=== PATIENT | female | born 1985 | race Caucasian/White ===

== ENCOUNTER 2017-07-05 08:55 | Emergency (ER) | payer OTHER ==
[2017-07-05 09:02] VITALS: BP 99/76; PULSE 81; RESP 18; TEMP 98.5
--- NOTE | 2017-07-05 09:32 | XR ---
EXAMINATION TYPE: XR foot complete LT DATE OF EXAM: 07/05/2017 CLINICAL HISTORY: Pain in left foot for a few days. TECHNIQUE: Frontal, lateral, and oblique images of the left foot are obtained. COMPARISON: None FINDINGS: There is no acute fracture/dislocation evident in the left foot. There is retained screw f ragment in the navicular bone medial aspect. Joint space loss medial aspect of talar navicular articu lation is present. There is unfused apophysis near cuboid bone. Some flexion in toes is present. No suspicious cortical destruction is present. The overlying soft tissue appears unremarkable. IMPRESSION: There is evidence of prior surgery at navicular bone noted. No acute fracture or disloca tion is seen.
--- NOTE | 2017-07-05 09:43 | ED ---
General Adult HPI - General Chief complaint: Extremity Injury, Lower Stated complaint: Foot Pain Time Seen by Provider: 07/05/17 09:10 Source: patient, RN notes reviewed Mode of arrival: wheelchair Limitations: no limitations - History of Present Illness Initial comments: 32-year-old female presents to the emergency Department chief complaint of left foot pain. Patient states that she's been having pain to the outside of her left foot for the past few weeks. Patient states that then today she noticed some increased pain and she points along the outside of her foot over her fifth metatarsal. Patient states it hurts if she bears weight on it. She's not been using anything for the pain. She states there is no trauma that she is aware of. She states that it just causes her some discomfort so she thought that she should be seen. Patient states she is not currently having any other symptoms at this time. Patient denies any recent fever, chills, shortness of breath, chest pain, back pain, abdominal pain, nausea vomiting, numbness or tingling, dysuria or hematuria, constipation or diarrhea, headaches or visual changes, or any other current symptoms. - Related Data Home Medications Medication Instructions Recorded Confirmed Ferrous Sulfate [Feosol] 325 mg PO DAILY 07/05/17 07/05/17 Norethindrone-E.estradiol-Iron 1 tab PO DAILY 07/05/17 07/05/17 [Junel Fe 24 Tablet] Allergies Allergy/AdvReac Type Severity Reaction Status Date / Time No Known Allergies Allergy Verified 07/05/17 09:17 Review of Systems ROS Statement: Those systems with pertinent positive or pertinent negative responses have been documented in the HPI. ROS Other: All systems not noted in ROS Statement are negative. Past Medical History Additional Past Medical History / Comment(s): scoliosis, migraines History of Any Multi-Drug Resistant Organisms: None Reported Past Surgical History: Appendectomy Additional Past Surgical History / Comment(s): bilateral feet Past Psychological History: No Psychological Hx Reported Smoking Status: Former smoker Past Alcohol Use History: Occasional Past Drug Use History: None Reported General Exam - General Exam Comments Initial Comments: General: The patient is awake and alert, in no distress, and does not appear acutely ill. Neck: The neck is supple, there is no tenderness. Cardiovascular: There is a regular rate and rhythm. No murmur, rub or gallop is appreciated. Respiratory: Lungs are clear to auscultation, respirations are non-labored, breath sounds are equal. No wheezes, stridor, rales, or rhonchi. Musculoskeletal: Sensation intact with 2+ pulses at the left lower extremity. Fund motion of left knee and left ankle. Patient does appear to have some tenderness patient along the fifth metatarsal. No swelling no deformity no bruising noted. Neurological: CN II-XII intact, There are no obvious motor or sensory deficits. Coordination appears grossly intact. Speech is normal. Skin: Skin is warm and dry and no rashes or lesions are noted. Psychiatric: Normal mood and affect. Limitations: no limitations Course Vital Signs 07/05/17 08:59 Temperature 98.5 F Pulse Rate 81 Respiratory 18 Rate Blood Pressure 99/76 O2 Sat by Pulse 97 Oximetry Medical Decision Making - Medical Decision Making 32-year-old female presents for left foot pain. This time x-rays reviewed and negative. At this time we discussed Motrin Tylenol for pain and ice. We did discuss follow-up with orthopedic discussed return parameters all for questions. She stated that she understood and she is in agreement with this plan. This time she will be discharged. - Radiology Data Radiology results: report reviewed, image reviewed Disposition Clinical Impression: Left foot pain Disposition: HOME SELF-CARE Condition: Stable Instructions: Foot Sprain (ED) Additional Instructions: Please use medication as discussed. Please follow up with family doctor if symptoms have not improved over the next two days. Please return to the emergency room if your symptoms increase or worsen or for any other concerns. Referrals: Booker Peoples MD [Primary Care Provider] - 1-2 days Jalen Torres MD [STAFF PHYSICIAN] - 1-2 days Time of Disposition: 09:43
== END 2017-07-05 09:51 | disposition home or self-care (01) ==
LOC: EC 08:55
DX: M79.672 Pain in left foot (principal); Z87.891 Personal history of nicotine dependence; Z79.899 Other long term (current) drug therapy; Z79.3 Long term (current) use of hormonal contraceptives
CPT/HCPCS: 99283

== ENCOUNTER 2018-03-29 09:06 | Emergency (ER) | payer OTHER ==
[2018-03-29 09:10] VITALS: BP 125/87; PULSE 83; RESP 18; TEMP 98.2
[2018-03-29] MEDS ORDERED: ORPHENADRINE 30 MG/ML 2 ML VIAL IM STA (09:22)
[2018-03-29] MEDS ORDERED: KETOROLAC 60 MG/2 ML VIAL IM STA (09:22)
--- NOTE | 2018-03-29 09:29 | ED ---
Extremity Problem HPI - General Chief complaint: Extremity Problem,Nontraumatic Stated complaint: rt shoulder pain Time Seen by Provider: 03/29/18 09:10 Source: patient, RN notes reviewed, old records reviewed Mode of arrival: ambulatory Limitations: no limitations - History of Present Illness Initial comments: This patient's a 33-year-old female presents emergency room with a chief complaint of neck pain and left shoulder pain and occasional numbness and tingling down the left arm. reports the symptoms have been going on for 3 days. Patient states that she does not room or any trauma or falls. She reports the pain is worse with movement. He is tender to touch over the scapula. Patient states that she feels that the occasional paresthesias. She denies any specific chest pain or shortness of breath. Patient states that she' s had no nausea or vomiting diaphoresis. - Related Data Home Medications Medication Instructions Recorded Confirmed Norethindrone-E.estradiol-Iron 1 tab PO DAILY 07/05/17 03/29/18 [Junel Fe 24 Tablet] Previous Rx's Medication Instructions Recorded Cyclobenzaprine [Flexeril] 10 mg PO TID #12 tab 03/29/18 Dexamethasone 0.75 mg PO DAILY #12 tab 03/29/18 Ibuprofen 600 mg PO TID #20 tablet 03/29/18 Allergies Allergy/AdvReac Type Severity Reaction Status Date / Time No Known Allergies Allergy Verified 03/29/18 09:17 Review of Systems ROS Statement: Those systems with pertinent positive or pertinent negative responses have been documented in the HPI. ROS Other: All systems not noted in ROS Statement are negative. Past Medical History Additional Past Medical History / Comment(s): scoliosis, migraines History of Any Multi-Drug Resistant Organisms: None Reported Past Surgical History: Appendectomy Additional Past Surgical History / Comment(s): bilateral feet Past Psychological History: No Psychological Hx Reported Smoking Status: Former smoker Past Alcohol Use History: Occasional Past Drug Use History: None Reported General Exam - General Exam Comments Initial Comments: This is an alert and oriented 33-year-old female. No significant distress. Limitations: no limitations General appearance: alert, in no apparent distress Head exam: Present: atraumatic, normocephalic, normal inspection Eye exam: Present: normal appearance, PERRL, EOMI. Absent: scleral icterus, conjunctival injection, periorbital swelling ENT exam: Present: normal exam, mucous membranes moist Neck exam: Present: normal inspection. Absent: tenderness, meningismus, lymphadenopathy Respiratory exam: Present: normal lung sounds bilaterally. Absent: respiratory distress, wheezes, rales, rhonchi, stridor Cardiovascular Exam: Present: regular rate, normal rhythm, normal heart sounds. Absent: systolic murmur, diastolic murmur, rubs, gallop, clicks GI/Abdominal exam: Present: soft, normal bowel sounds. Absent: distended, tenderness, guarding, rebound, rigid Extremities exam: Present: normal inspection, full ROM, normal capillary refill. Absent: tenderness, pedal edema, joint swelling, calf tenderness Back exam: Present: normal inspection, full ROM, vertebral tenderness (Patient has some minimal vertebral tenderness over the lower cervical spine.) Neurological exam: Present: alert, oriented X3, CN II-XII intact Psychiatric exam: Present: normal affect, normal mood Course Vital Signs 03/29/18 09:06 Temperature 98.2 F Pulse Rate 83 Respiratory 18 Rate Blood Pressure 125/87 O2 Sat by Pulse 99 Oximetry Medical Decision Making - Medical Decision Making 33-year-old female present to his pharmacy chief complaint of left shoulder and neck pain pain with range of motion. Patient reports occasional Full paresthesias on the left hand. She does have full range of motion noted. She was tender over the supraspinatus muscle. She also reports some pain with range motion of her head. Her vital signs are stable. I did perform an EKG which shows normal sinus rhythm no evidence of any acute abdomen or maladies. Patient was given IM Toradol and Norflex. This heavily patient's pain is more likely related to muscle spasm and as well as entrapped nerve of her cervical spine. Patient will be started on a steroid taper pack, muscle relaxers and anti-inflammatory medicine. All questions answered return parameters were discussed. 03/29/18 10:26 EKG performed at 1006 shows sinus rhythm with sinus arrhythmia. Normal EKG. Ventricular rate 67 beats were minute period. Most 136 most seconds. Care is duration 80 ms. QT QTc is 386/470 ms. - Radiology Data Radiology results: report reviewed No Acute fracture dislocation of the shoulder. Cervical spine shows no acute fractures or dislocation of the cervical spine. Disposition Clinical Impression: Shoulder pain, left, Arm paresthesia, left Disposition: HOME SELF-CARE Condition: Good Instructions: Paresthesia (ED), Rotator Cuff Tendinitis (ED) Additional Instructions: Patient advised to apply warm compresses over the area. Take the medication as prescribed. Follow-up with your primary care physician within the next 1-2 days. Return to the emergency department if any alarming signs or symptoms occur. Prescriptions: Cyclobenzaprine [Flexeril] 10 mg PO TID #12 tab Dexamethasone 0.75 mg PO DAILY #12 tab Ibuprofen 600 mg PO TID #20 tablet Is patient prescribed a controlled substance at d/c from ED?: No When asked, does pt state using other controlled substances?: No If prescribed controlled substance>3 days was MAPS reviewed?: No If opioid is for acute pain is fill amount 7 days or less?: No If Rx opioid, was Start Talking consent form obtained?: No Referrals: Marcos Davis MD [Primary Care Provider] - 1-2 days Time of Disposition: 10:27
--- NOTE | 2018-03-29 10:09 | XR ---
EXAMINATION TYPE: XR shoulder complete LT DATE OF EXAM: 03/29/2018 CLINICAL HISTORY: pain COMPARISON: NONE TECHNIQUE: Three views of the left shoulder are obtained. FINDINGS: There is no acute fracture/dislocation evident. The acromioclavicular and glenohumeral radha int spaces appear within normal limits. The visualized ribs are intact and unremarkable. IMPRESSION: 1. There is no acute fracture or dislocation. ICD 10 NO FRACTURE, INITIAL EVALUATION
--- NOTE | 2018-03-29 10:10 | XR ---
EXAMINATION TYPE: XR cervical spine limited DATE OF EXAM: 03/29/2018 CLINICAL HISTORY: pain TECHNIQUE: 3 views of the cervical spine are submitted. COMPARISON: None. FINDINGS: There is satisfactory in alignment without evidence of acute fracture or dislocation. The pre-vertebral soft tissue appears within normal limits.Disc spaces are well preserved. The C1-C2 art iculation is unremarkable on the open mouth view. IMPRESSION: No acute fracture or dislocation is seen in the cervical spine.
== END 2018-03-29 10:51 | disposition home or self-care (01) ==
LOC: EC 09:06
DX: M25.512 Pain in left shoulder (principal); R20.2 Paresthesia of skin; I49.8 Other specified cardiac arrhythmias; M54.2 Cervicalgia; R20.0 Anesthesia of skin; Z87.891 Personal history of nicotine dependence; Z79.3 Long term (current) use of hormonal contraceptives
CPT/HCPCS: 93005; 72040; 73030; 99284; 96372 ×2; J2360; J1885

== ENCOUNTER 2018-04-05 20:53 | Emergency (ER) | payer OTHER ==
[2018-04-05 21:23] VITALS: BP 113/70; PULSE 104; RESP 19; TEMP 98.3
[2018-04-06 06:03] LABS: ALT 30 U/L (9-52); AST 25 U/L (14-36); Alkaline Phosphatase 46 U/L (38-126); Anion Gap 8 mmol/L; Blood Urea Nitrogen 13 mg/dL (7-17); Calcium 9.3 mg/dL (8.4-10.2); Carbon Dioxide 24 mmol/L (22-30); Chloride 106 mmol/L (98-107); Glucose 100 mg/dL (74-99); Potassium 4.7 mmol/L (3.5-5.1); Sodium 138 mmol/L (137-145); Total Bilirubin 0.3 mg/dL (0.2-1.3); Total Protein 6.7 g/dL (6.3-8.2)
[2018-04-06 06:05] LABS: Amorphous Sediment,Urine Rare /hpf; Appearance,Urine Cloudy (Clear); Bilirubin,Urine Negative (Negative); Blood,Urine Negative (Negative); Color,Urine Yellow; Glucose,Urine (UA) Negative (Negative); Ketones,Urine Negative (Negative); Leukocyte Esterase,Urine Negative (Negative); Mucus,Urine Rare /hpf; Nitrite,Urine Negative (Negative); PH, Urine 7.5 (5.0-8.0); Protein,Urine Negative (Negative); Specific Gravity,Urine 1.018 (1.001-1.035); Squamous Epithelial Cell,Urine <1 /hpf (0-4); Urobilinogen,Urine <2.0 mg/dL (<2.0)
[2018-04-06 06:13] LABS: Basophils # (A) 0.1 k/uL (0-0.2); Basophils % (A) 1 %; Eosinophils # (A) 0.2 k/uL (0-0.7); Eosinophils % (A) 4 %; HCT 40.2 % (34.0-46.0); HGB 13.4 gm/dL (11.4-16.0); Lymphocytes # (A) 2.7 k/uL (1.0-4.8); Lymphocytes % (A) 47 %; MCH 30.6 pg (25.0-35.0); MCHC 33.4 g/dL (31.0-37.0); MCV 91.5 fL (80.0-100.0); Mean Platelet Volume 7.3; Monocytes # (A) 0.2 k/uL (0-1.0); Monocytes % (A) 4 %; Neutrophils # (A) 2.4 k/uL (1.3-7.7); Neutrophils % (A) 43 %; Platelet Count 209 k/uL (150-450); RDW 12.8 % (11.5-15.5); WBC 5.6 k/uL (3.8-10.6)
--- NOTE | 2018-04-06 11:39 | CT ---
EXAMINATION TYPE: CT chest wo con DATE OF EXAM: 04/06/2018 COMPARISON: NONE HISTORY: Left-sided chest pain into shoulder with crepitus CT DLP: 409.10 mGycm. Automated Exposure Control for Dose Reduction was Utilized. TECHNIQUE: CT scan of the thorax is performed without IV contrast. FINDINGS: LUNGS: There is left greater than right dependent atelectasis otherwise lungs are predominantly clear . There is right medial basilar linear scarring or atelectasis near diaphragm. No suspicious noncalci fied nodule or mass is present. There is a calcified 5 mm medial right middle lobe nodule axial image 47. There is no pleural effusion or pneumothorax seen. The tracheobronchial tree is patent. MEDIASTINUM: Lack of IV contrast is noted to limit evaluation for mediastinal and especially hilar ad enopathy. There are no definitive greater than 1 cm noncalcified hilar or mediastinal lymph nodes. T here are prominent calcified subcarinal lymph nodes. No cardiomegaly or pericardial effusion is seen. OTHER: Overlying metallic nipple ornaments are present. There is S-shaped scoliosis to visualized tho racolumbar spine. Occasional calcification in spleen is noted. Debris-filled stomach suggests recent meal ingestion. IMPRESSION: No suspicious subcutaneous air. No suspicious acute pulmonary process. 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
== END 2018-04-06 00:57 | disposition home or self-care (01) ==
LOC: EC 20:53
DX: M25.512 Pain in left shoulder (principal); Z79.52 Long term (current) use of systemic steroids; Z79.899 Other long term (current) drug therapy
CPT/HCPCS: 36415; 71250; 80053; 81001; 81025; 85025; 93005; 99284

== ENCOUNTER → 2019-05-24 | Outpatient (CLI) | payer OTHER ==
[2019-05-25 00:20] LABS: Hemoglobin A1C 5.2 % (4.0-6.0)
[2019-05-25 01:33] LABS: African American GFR (CKD) 113.1 (60.0-200.0); Albumin 4.6 g/dL (3.80-4.90); Albumin/Globulin Ratio 2.19 (1.60-3.17); Anion Gap 9.9 mmol/L (4.00-12.00); Calcium 9.1 mg/dL (8.7-10.3); Carbon Dioxide 24.1 mmol/L (21.6-31.8); Chol/HDL Ratio 2.93; Globulin 2.1 g/dL (1.6-3.3); Potassium 3.5 mmol/L (3.5-5.5); Total Bilirubin 0.5 mg/dL (0.3-1.2); Total Protein 6.7 g/dL (6.2-8.2)
[2019-05-25 01:57] LABS: T4, Free (Free Thyroxine) 0.9 ng/dL (0.80-1.80)
[2019-05-25 08:53] LABS: Basophils # (A) 0.1 k/uL (0-0.2); Basophils % (A) 2 %; Eosinophils # (A) 0.2 k/uL (0-0.7); Eosinophils % (A) 3 %; HCT 38.7 % (34.0-46.0); HGB 12.9 gm/dL (11.4-16.0); Lymphocytes # (A) 1.9 k/uL (1.0-4.8); Lymphocytes % (A) 31 %; MCH 29.6 pg (25.0-35.0); MCHC 33.2 g/dL (31.0-37.0); MCV 89.1 fL (80.0-100.0); Mean Platelet Volume 8.8; Monocytes # (A) 0.2 k/uL (0-1.0); Monocytes % (A) 4 %; Neutrophils # (A) 3.6 k/uL (1.3-7.7); Neutrophils % (A) 60 %; Platelet Count 216 k/uL (150-450); RBC 4.34 m/uL (3.80-5.40); WBC 6.1 k/uL (3.8-10.6)
[2019-05-25 13:32] LABS: APTT 40 Sec(s) (<43); Dilute Russell Viper Venom 40 Sec(s) (<44)
== END | disposition home or self-care (01) ==
LOC: LABWHC1 16:54
PROVIDERS: ATTEND Family Medicine
DX: Z00.00 Encounter for general adult medical examination without abnormal findings (principal); I10 Essential (primary) hypertension; Z79.899 Other long term (current) drug therapy
CPT/HCPCS: 36415; 80053; 80061; 83036; 84439; 84443; 85025; 85613; 85730; 86038

== ENCOUNTER → 2020-02-22 | Outpatient (CLI) | payer OTHER ==
[2020-02-22 09:18] LABS: HCT 40.9 % (34.0-46.0); HGB 13.2 gm/dL (11.4-16.0); MCH 29.7 pg (25.0-35.0); MCHC 32.3 g/dL (31.0-37.0); Mean Platelet Volume 8.1; Platelet Count 182 k/uL (150-450); RBC 4.45 m/uL (3.80-5.40); RDW 13.4 % (11.5-15.5); WBC 5.4 k/uL (3.8-10.6)
[2020-02-22 09:27] LABS: African American GFR (CKD) >90 (>60 ml/min/1.73 sqM); Glucose 105 mg/dL (74-99); Non-African American GFR(CKD) >90 (>60 ml/min/1.73 sqM)
--- NOTE | 2020-02-22 10:06 | US ---
EXAMINATION TYPE: US OB <= 14 wk twins DATE OF EXAM: 02/22/2020 COMPARISON: NONE CLINICAL HISTORY: 34-year-old female Z36 Confirm dates. EXAM PERFORMED: Transabdominal (TA) FINDINGS: EXAM MEASUREMENTS: GESTATIONAL AGE / DATING Physician Established: Not yet established Dates by LMP: (9 weeks/4 days) EDC: 09/22/2020 Dates by First Scan: No previous this is first scan Dates by Current Scan for Baby A: (9 weeks/0 days) EDC: 09/26/2020 Dates by Current Scan for Baby B: (9 weeks/0 days) EDC: 09/26/2020 MATERNAL ANATOMY Uterus: 15.2 x 5.5 x 8.0 cm Right Ovary: 2.2 x 1.2 x 1.5 cm Left Ovary: 3.2 x 2.2 x 2.1 cm Post CDS / Adnexa: wnl Presence of free fluid: No Presence of corpus luteal cyst: No Presence of subchorionic bleed: Yes, measuring 2.3 x 0.6 x 2.9 cm , inferiorly Presence of two separate gestational sacs: No. However, 2 separate expanding amnions are visualized. 2 yolk sacs are present. GESTATION / SURVEY TWIN A CRL: 2.3 (wks/days) Yolk Sac (normal less than 6mm): 3 mm Heart Rate: 176 bpm Rhythm: Normal IUP: Viable IUP TWIN B CRL: 2.28 (9wks/0 days) Yolk Sac (normal less than 6mm): 4 mm Heart Rate: 174 bpm Rhythm: Normal IUP: Viable IUP Date of LMP: 12/17/2019 Beta HcG (if available): Not available at this time Ambulance Mechanic notes: Viable twin . Subchorionic bleed measuring 2.3 x 0.6 x 2.9 cm IMPRESSION: 1. Live twin (monochorionic diamniotic) with estimated gestational age of 9 weeks 4 days by LMP and measured age for both twins at 9 weeks 0 days. 2. Small to moderate sized 2.9 cm inferior perigestational bleed. Borderline tachycardia at 176 BPM. Short interval follow-up as clinically indicated. 3. Complete survey recommended at 18-20 weeks.
[2020-02-22 18:48] LABS: HIV 2 AB Non-Reactive (Non-Reactive); HIV AB P24 Non-Reactive (Non-Reactive); HIV P24 AG Non-Reactive (Non-Reactive)
[2020-02-22 19:08] LABS: Hepatitis B Surface Antigen Non-Reactive (Non-Reactive)
== END | disposition home or self-care (01) ==
LOC: RADUSWWP 08:33
PROVIDERS: ATTEND Obstetrics & Gynecology
DX: O30.001 Twin pregnancy, unspecified number of placenta and unspecified number of amniotic sacs, first trimester (principal); Z3A.09 9 weeks gestation of pregnancy; O20.8 Other hemorrhage in early pregnancy
CPT/HCPCS: 76801; 76802; 82565; 82947; 85027; 86762; 86780; 86850; 86900; 86901; 87340; 87390

== ENCOUNTER 2020-05-13 14:48 | Outpatient (CLI) | payer OTHER ==
[2020-05-13 15:50] LABS: Appearance,Urine Cloudy (Clear); Bacteria,Urine Occasional /hpf; Bilirubin,Urine Negative (Negative); Blood,Urine Large (Negative); Color,Urine Light Yellow; Glucose,Urine (UA) Negative (Negative); Ketones,Urine Negative (Negative); Leukocyte Esterase,Urine Large (Negative); Mucus,Urine Rare /hpf; Nitrite,Urine Negative (Negative); Protein,Urine Trace (Negative); RBC,Urine 5 /hpf (0-5); Specific Gravity,Urine 1.002 (1.001-1.035); Squamous Epithelial Cell,Urine 2 /hpf (0-4); Urobilinogen,Urine <2.0 mg/dL (<2.0); WBC,Urine 128 /hpf (0-5)
[2020-05-13 16:35] VITALS: BP 125/67; PULSE 100; RESP 16; TEMP 97
--- NOTE | 2020-05-29 12:24 | P.MSEPDOC ---
Presenting Problems - Arrival Data Date of Arrival on Unit: 05/13/20 Time of Arrival on Unit: 14:48 Mode of Transport: Ambulatory - Complaint OB-Reason for Admission/Chief Complaint: Vaginal Bleeding Comment: pt presents to triage for vaginal bleedin for the last couple of hours, only on tp and some in toilet, none in her underware, no pad worn or needed Medical History - Information : 8 Para: 6 Term: 6 : 0 Abortions: Spontaneous or Elective: 1 Number of Living Children: 6 - Gestational Age Gestational Age by MADDY (wks/days): 21 Weeks and 1 Days - History Complications: Multiple Review of Systems - Review of Systems Constitutional: No problems Breast: No problems ENT: No problems Cardiovascular: No problems Respiratory: No problems Gastrointestinal: No problems Genitourinary: No problems Musculoskeletal: No problems Neurological: No problems Skin: No problems Vital Signs - Temperature Temperature: 97.0 F Temperature Source: Oral - Pulse Right Brachial Pulse Rate: 100 - Respirations Respiratory Rate: 16 Oxygen Delivery Method: Room Air O2 Sat by Pulse Oximetry: 100 - Blood Pressure Right Arm Blood Pressure: 125/67 Blood Pressure Mean: 86 Blood Pressure Source: Automatic Cuff Medical Screen Scoring (Pre) - Cervical Exam Dilation: Exam Deferred Effacement: Exam Deferred Membranes: Intact - Uterine Contractions Frequency: N/A Duration: N/A Intensity: N/A - Maternal Vital Signs Maternal Temperature: N/A Maternal Blood Pressure: N/A Signs of Preeclampsia: N/A Maternal Respirations: N/A - Maternal Trauma Maternal Trauma: N/A - Assessment - Baby A Heart Rate - NICHD Category: Category I (Normal) = 0 Position: N/A Station: N/A - Assessment - Baby B Heart Rate - NICHD Category: Category I (Normal) = 0 Position: N/A Station: N/A - Total Score - Baby A Total Score - Baby A: 0 - Total Score - Baby B Total Score - Baby B: 0 - Total Score - Baby C Total Score - Baby C: 0 - Level of Risk - Baby A Level of Risk - Baby A: Low (0-5) - Level of Risk - Baby B Level of Risk - Baby B: Low (0-5) - Level of Risk - Baby C Level of Risk - Baby C: Low (0-5) Physician Notification (Pre) - Physician Notified Physician Notified Date: 05/13/20 Physician Notified Time: 16:05 New Order Received: Yes - Notification Comment Comment: UA done, speculum exam done with no blood noted, urine culture ordered, pt discharged home with orders to push oral fluids and follow up at scheduled appt tomorrow with Dr. Collaoz Disposition - Disposition OB Disposition: Triage, Discharge to home, Written follow up instructions reviewed Discharge Date: 05/13/20 Discharge Time: 16:15 I agree with the RN Medical Screening Exam: Yes Risk & Benefit of care provided described in d/c instruction: Yes Diagnosis: ANTEPARTUM HEMORRHAGE W OTH COAG DEFECT, THIRD TRIMESTER
== END 2020-05-13 16:15 | disposition home or self-care (01) ==
LOC: FBPOP 14:48
PROVIDERS: ATTEND Obstetrics & Gynecology
DX: O46.093 Antepartum hemorrhage with other coagulation defect, third trimester (principal); Z3A.21 21 weeks gestation of pregnancy
CPT/HCPCS: 81001; 87086; 87077; 87186; G0463; 99213

== ENCOUNTER 2020-05-14 15:36 | Inpatient (IN) | payer OTHER ==
--- NOTE | 2020-05-14 17:31 | P.HPOB ---
History of Present Illness H&P Date: 05/14/20 Chief Complaint: Intrauterine 21 weeks: Patient is a 35 old with twin gestation at 21 weeks who is admitted for suspected pyelonephritis. She was seen in labor and delivery last night and a urinalysis was done showing 120 white blood cells and large blood and some white blood cells were in clumps and she was sent home with instructions as she had an appointment with me to follow up with depending on what her culture showed. There were some concern that because she had a liliana blood in her urine and it may actually be kidney stone and not an infection, but based on the rest of her symptomatology I suspect that this is pyelonephritis. Her vital signs are otherwise stable and she is afebrile. She questioned whether not she had a fever earlier today but in the office her temperature was 97.7. Her heart is regular her lungs are clear and her abdomen is soft. It is somewhat tender particularly along the right flank and side area and again costovertebral angle tenderness on the right side is soft positive negative on the left. We're making her for IV antibiotics for 24-48 hours depending on her symptomatology and will plan to continue close observational care as she does have a twin gestation. All questions are answered for her. She understands her condition and what the treatment plan is and she agrees to above Past Medical History Additional Past Medical History / Comment(s): scoliosis, migraines History of Any Multi-Drug Resistant Organisms: None Reported Past Surgical History: Appendectomy Additional Past Surgical History / Comment(s): bilateral feet Past Anesthesia/Blood Transfusion Reactions: No Reported Reaction Past Psychological History: No Psychological Hx Reported Smoking Status: Never smoker Past Alcohol Use History: Occasional Past Drug Use History: None Reported - Past Family History Mother Family Medical History: Coronary Artery Disease (CAD) Medications and Allergies Home Medications Medication Instructions Recorded Confirmed Type Aspirin [Children's Aspirin] 81 mg PO DAILY 05/13/20 05/13/20 History Folic Acid 1 tab PO DAILY 05/13/20 05/13/20 History Pnv No.95/Ferrous Fum/Folic AC 1 tab PO DAILY 05/13/20 05/13/20 History [ Multivitamin Tablet] Allergies Allergy/AdvReac Type Severity Reaction Status Date / Time Pertussis Vaccines Allergy Unknown Verified 05/13/20 15:24 Exam Osteopathic Statement: *. No significant issues noted on an osteopathic structural exam other than those noted in the History and Physical/Consult. Vital Signs Temp Pulse Resp BP 05/14/20 16:15 97.4 F L 84 14 116/64 Intake and Output 05/14/20 05/14/20 05/14/20 06:59 14:59 22:59 Other: Weight 78.018 kg - OBG Physical Exam Breast: both: normal (no masses) Abdomen: bowel sounds normal, no diffuse tenderness, no bruit present, no guarding noted, no hepatomegaly, no splenomegaly, no mass Vulva: both: normal Vagina: normal moisture, no discharge Cervix: no lesion, no discharge Uterus: normal size, normal contour Adnexa: both: normal Anus/Rectum: normal perianal skin, no rectal mass, no hemorrhoids, heme negative
[2020-05-14 18:31] LABS: Basophils % (A) 0 %; Eosinophils # (A) 0.1 k/uL (0-0.7); Eosinophils % (A) 1 %; HCT 34.3 % (34.0-46.0); HGB 11.4 gm/dL (11.4-16.0); Lymphocytes # (A) 1.3 k/uL (1.0-4.8); Lymphocytes % (A) 12 %; MCH 32.2 pg (25.0-35.0); MCHC 33.1 g/dL (31.0-37.0); MCV 97.1 fL (80.0-100.0); Mean Platelet Volume 8.9; Monocytes # (A) 0.4 k/uL (0-1.0); Monocytes % (A) 4 %; Neutrophils # (A) 8.9 k/uL (1.3-7.7); Neutrophils % (A) 82 %; Platelet Count 158 k/uL (150-450); RBC 3.53 m/uL (3.80-5.40); RDW 15.3 % (11.5-15.5); WBC 10.8 k/uL (3.8-10.6)
[2020-05-14 18:42] LABS: African American GFR (CKD) >90 (>60 ml/min/1.73 sqM); Anion Gap 3 mmol/L; Blood Urea Nitrogen 3 mg/dL (7-17); Carbon Dioxide 24 mmol/L (22-30); Chloride 108 mmol/L (98-107); Glucose 89 mg/dL (74-99); Non-African American GFR(CKD) >90 (>60 ml/min/1.73 sqM); Sodium 135 mmol/L (137-145)
[2020-05-14] MEDS: Acetaminophen-Codeine 300-30mg TAB PO PRN (19:17)
[2020-05-14] MEDS: LACTATED RINGERS 1,000 ML IV SCH (19:38)
[2020-05-14] MEDS: PIPERACILLIN-TAZOBACTAM 3.375 GM in SODIUM CHLORIDE 0.9% 100 ML IVPB SCH (19:39)
[2020-05-15] MEDS: Acetaminophen-Codeine 300-30mg TAB PO PRN (03:10)
[2020-05-15] MEDS: PIPERACILLIN-TAZOBACTAM 3.375 GM in SODIUM CHLORIDE 0.9% 100 ML IVPB SCH ×3 (03:12→18:49)
[2020-05-15] MEDS: LACTATED RINGERS 1,000 ML IV SCH ×3 (08:30→11:50)
--- NOTE | 2020-05-15 16:56 | P.PN ---
Progress Note - Text Progress Note Date: 05/15/20 Priscilla is seen and evaluated this afternoon. She overall is doing well. Her vital signs remained stable and she is been afebrile. White blood cell count was only 10.8 and I had planned to discharge her to home. However, late this morning early this afternoon she had an episode where her blood pressure fell and she had blood pressure in the 80s over's 50s she felt nauseous and clammy and it sounds like she potentially has a vagal reaction and a near syncopal episode. We'll consult her primary care provider for additional assistance in this diagnosis, she may ultimately need a cardiology consult if we're unable to determine why she is having these. She relates that she's had multiple episodes this her last 2 weeks initially had thought that it was due to the , however, based on the fact that she was laying resting in bed and she was not finer back it is unclear to me why she would have these symptoms in this situation. Will plan to continue current care continue IV antibiotics into tomorrow at which time I expect the sensitivity to be completed as well so we can make adjustments from there.
[2020-05-15 20:32] VITALS: BP 104/68; PULSE 80; RESP 18; TEMP 98.4
[2020-05-15] MEDS ORDERED: SODIUM CHLORIDE 0.9% 500 ML 500 ML IV ONE (23:43)
== END 2020-05-15 22:50 | disposition home or self-care (01) | DRG 833 ==
LOC: 4FBP 15:36 → OBSVTOIN 17:32 → 6PED 05-15 17:15
PROVIDERS: ADMIT Obstetrics & Gynecology; ATTEND Obstetrics & Gynecology
DX: O23.02 Infections of kidney in pregnancy, second trimester (principal); O26.892 Other specified pregnancy related conditions, second trimester; O99.89 Other specified diseases and conditions complicating pregnancy, childbirth and the puerperium; O99.352 Diseases of the nervous system complicating pregnancy, second trimester; R31.9 Hematuria, unspecified; O30.009 Twin pregnancy, unspecified number of placenta and unspecified number of amniotic sacs, unspecified trimester; M41.9 Scoliosis, unspecified; G43.909 Migraine, unspecified, not intractable, without status migrainosus; R55 Syncope and collapse; Z3A.21 21 weeks gestation of pregnancy; Z90.49 Acquired absence of other specified parts of digestive tract; Z79.82 Long term (current) use of aspirin; Z88.7 Allergy status to serum and vaccine; Z82.49 Family history of ischemic heart disease and other diseases of the circulatory system
CPT/HCPCS: 80048; 85025

== ENCOUNTER 2020-05-21 09:53 | Observation (INO) | payer OTHER ==
[2020-05-21] MEDS ORDERED: SODIUM CHLORIDE 0.9% 1,000 ML IV ONE (10:17)
--- NOTE | 2020-05-21 10:29 | ED ---
General Adult HPI - General Chief complaint: Dizziness Stated complaint: 22 wks preg dizziness Time Seen by Provider: 05/21/20 10:01 Source: EMS Mode of arrival: EMS Limitations: no limitations - History of Present Illness Initial comments: 35-year-old female patient presents to the emergency department today for evaluation after being sent from the continuous improvement black belt's office. Patient states that for the last month she has been having intermittent episodes where she becomes very hot, dizzy, has racing heart, and feels very weak. Patient states that she also become short of breath during these episodes. Patient states that last anywhere from 10-15 minutes and afterwards to feel exhausted and develops a headahce. Patient states that she has noticed that her blood pressure decreases during these episodes. Patient is 22 weeks . She is G8, P6. She was recently admitted to the hospital for pyelonephritis, she is currently taking Keflex for this. She denies any fevers or chills. Denies chest pain. She denies any nausea, vomiting, constipation, diarrhea. States she is able to eat and drink without difficulty. States during the episode she has checked her blood sugar and it has been normal. She does have history of complicated enmanuel cristian, but not for the last several years. She reports that her symptoms were much different. Patient denies any recent rash, cough, abdominal pain, back pain, numbness, tingling, hematuria, dysuria, urinary urgency, urinary frequency, headache, visual changes, or any other complaints. - Related Data Home Medications Medication Instructions Recorded Confirmed Aspirin [Children's Aspirin] 81 mg PO DAILY 05/13/20 05/13/20 Folic Acid 1 tab PO DAILY 05/13/20 05/13/20 Pnv No.95/Ferrous Fum/Folic AC 1 tab PO DAILY 05/13/20 05/13/20 [ Multivitamin Tablet] Previous Rx's Medication Instructions Recorded Cephalexin [Keflex] 500 mg PO Q6HR 7 Days #28 cap 05/15/20 Allergies Allergy/AdvReac Type Severity Reaction Status Date / Time Pertussis Vaccines Allergy Unknown Verified 05/21/20 09:56 Review of Systems ROS Statement: Those systems with pertinent positive or pertinent negative responses have been documented in the HPI. ROS Other: All systems not noted in ROS Statement are negative. Past Medical History Past Medical History: No Reported History Additional Past Medical History / Comment(s): scoliosis, migraines History of Any Multi-Drug Resistant Organisms: None Reported Past Surgical History: Appendectomy Additional Past Surgical History / Comment(s): bilateral feet Past Anesthesia/Blood Transfusion Reactions: No Reported Reaction Past Psychological History: No Psychological Hx Reported Smoking Status: Never smoker Past Alcohol Use History: Occasional Past Drug Use History: None Reported - Past Family History Mother Family Medical History: Coronary Artery Disease (CAD) General Exam Limitations: no limitations General appearance: alert, in no apparent distress, other (This is a well- developed, well-nourished adult female patient in no acute distress. Vital signs upon presentation are temperature 98.7F, pulse 75, respirations 22, blood pressure 116/82, pulse ox 100% on room air.) Eye exam: Present: normal appearance, PERRL, EOMI. Absent: scleral icterus, conjunctival injection, periorbital swelling Respiratory exam: Present: normal lung sounds bilaterally. Absent: respiratory distress, wheezes, rales, rhonchi, stridor Cardiovascular Exam: Present: regular rate, normal rhythm, normal heart sounds. Absent: systolic murmur, diastolic murmur, rubs, gallop, clicks GI/Abdominal exam: Present: soft, normal bowel sounds. Absent: distended, tenderness, guarding, rebound, rigid Neurological exam: Present: alert, oriented X3, CN II-XII intact Psychiatric exam: Present: normal affect, normal mood Skin exam: Present: warm, dry, intact, normal color. Absent: rash Course Vital Signs 05/21/20 05/21/20 09:56 11:26 Temperature 98.7 F Pulse Rate 75 97 Respiratory 22 17 Rate Blood Pressure 116/82 98/74 O2 Sat by Pulse 100 100 Oximetry EKG Findings - EKG Comments: EKG Findings:: EKG obtained at 1002 shows normal sinus rhythm with a ventricular rate of 82, MI interval 148, QRS duration 78, QT 360, QTC 420. No evidence of ST elevation or depression. Medical Decision Making - Medical Decision Making 35-year-old female patient presents to the emergency department today for evaluation of palpitations, dizziness, and weakness. Patient is 22 weeks . Was evaluated by Dr. Loi Morrow at cardiology today was sent over for further evaluation. Labs reviewed and are unremarkable. Echo results are pending. Urinalysis is pending. We will admit to the hospital for further evaluation by cardiology and her OFFICE MACHINE TECHNICIAN. Patient is agreeable to plan. - Lab Data Result diagrams: 05/21/20 10:24 05/21/20 10:24 Lab Results 05/21/20 05/21/20 05/21/20 Range/Units 10:24 10:24 10:24 WBC 7.3 (3.8-10.6) k/uL RBC 3.49 L (3.80-5.40) m/uL Hgb 11.2 L (11.4-16.0) gm/dL Hct 33.6 L (34.0-46.0) % MCV 96.1 (80.0-100.0) fL MCH 32.0 (25.0-35.0) pg MCHC 33.3 (31.0-37.0) g/dL RDW 14.8 (11.5-15.5) % Plt Count 185 (150-450) k/uL Neutrophils % 69 % Lymphocytes % 24 % Monocytes % 4 % Eosinophils % 2 % Basophils % 1 % Neutrophils # 5.0 (1.3-7.7) k/uL Lymphocytes # 1.8 (1.0-4.8) k/uL Monocytes # 0.3 (0-1.0) k/uL Eosinophils # 0.1 (0-0.7) k/uL Basophils # 0.0 (0-0.2) k/uL PT 9.5 (9.0-12.0) sec INR 0.9 (<1.2) APTT 20.7 L (22.0-30.0) sec Sodium 135 L (137-145) mmol/L Potassium 4.1 (3.5-5.1) mmol/L Chloride 108 H (98-107) mmol/L Carbon Dioxide 21 L (22-30) mmol/L Anion Gap 6 mmol/L BUN 8 (7-17) mg/dL Creatinine 0.45 L (0.52-1.04) mg/dL Est GFR (CKD-EPI)AfAm >90 (>60 ml/min/1.73 sqM) Est GFR (CKD-EPI)NonAf >90 (>60 ml/min/1.73 sqM) Glucose 95 (74-99) mg/dL Calcium 8.8 (8.4-10.2) mg/dL Magnesium 1.8 (1.6-2.3) mg/dL Total Bilirubin 0.4 (0.2-1.3) mg/dL AST 24 (14-36) U/L ALT 13 (4-34) U/L Alkaline Phosphatase 62 (38-126) U/L Troponin I (0.000-0.034) ng/mL Total Protein 5.8 L (6.3-8.2) g/dL Albumin 3.2 L (3.5-5.0) g/dL TSH 3.730 (0.465-4.680) mIU/L 05/21/20 Range/Units 10:24 WBC (3.8-10.6) k/uL RBC (3.80-5.40) m/uL Hgb (11.4-16.0) gm/dL Hct (34.0-46.0) % MCV (80.0-100.0) fL MCH (25.0-35.0) pg MCHC (31.0-37.0) g/dL RDW (11.5-15.5) % Plt Count (150-450) k/uL Neutrophils % % Lymphocytes % % Monocytes % % Eosinophils % % Basophils % % Neutrophils # (1.3-7.7) k/uL Lymphocytes # (1.0-4.8) k/uL Monocytes # (0-1.0) k/uL Eosinophils # (0-0.7) k/uL Basophils # (0-0.2) k/uL PT (9.0-12.0) sec INR (<1.2) APTT (22.0-30.0) sec Sodium (137-145) mmol/L Potassium (3.5-5.1) mmol/L Chloride (98-107) mmol/L Carbon Dioxide (22-30) mmol/L Anion Gap mmol/L BUN (7-17) mg/dL Creatinine (0.52-1.04) mg/dL Est GFR (CKD-EPI)AfAm (>60 ml/min/1.73 sqM) Est GFR (CKD-EPI)NonAf (>60 ml/min/1.73 sqM) Glucose (74-99) mg/dL Calcium (8.4-10.2) mg/dL Magnesium (1.6-2.3) mg/dL Total Bilirubin (0.2-1.3) mg/dL AST (14-36) U/L ALT (4-34) U/L Alkaline Phosphatase (38-126) U/L Troponin I <0.012 (0.000-0.034) ng/mL Total Protein (6.3-8.2) g/dL Albumin (3.5-5.0) g/dL TSH (0.465-4.680) mIU/L Disposition Clinical Impression: Palpitations, Dizziness Disposition: ADMITTED IP TO THIS [facility] Condition: Serious Referrals: Marcos Davis MD [Primary Care Provider] - 1-2 days Decision to Admit Reason: Admit from EC Decision Date: 05/21/20 Decision Time: 11:47
[2020-05-21 10:36] LABS: Basophils % (A) 1 %; Eosinophils # (A) 0.1 k/uL (0-0.7); Eosinophils % (A) 2 %; HCT 33.6 % (34.0-46.0); HGB 11.2 gm/dL (11.4-16.0); Lymphocytes # (A) 1.8 k/uL (1.0-4.8); Lymphocytes % (A) 24 %; MCHC 33.3 g/dL (31.0-37.0); MCV 96.1 fL (80.0-100.0); Mean Platelet Volume 9.1; Monocytes # (A) 0.3 k/uL (0-1.0); Monocytes % (A) 4 %; Neutrophils % (A) 69 %; Platelet Count 185 k/uL (150-450); RBC 3.49 m/uL (3.80-5.40); RDW 14.8 % (11.5-15.5); WBC 7.3 k/uL (3.8-10.6)
[2020-05-21 10:54] LABS: ALT 13 U/L (4-34); AST 24 U/L (14-36); African American GFR (CKD) >90 (>60 ml/min/1.73 sqM); Albumin 3.2 g/dL (3.5-5.0); Alkaline Phosphatase 62 U/L (38-126); Anion Gap 6 mmol/L; Blood Urea Nitrogen 8 mg/dL (7-17); Calcium 8.8 mg/dL (8.4-10.2); Carbon Dioxide 21 mmol/L (22-30); Chloride 108 mmol/L (98-107); Glucose 95 mg/dL (74-99); Magnesium 1.8 mg/dL (1.6-2.3); Non-African American GFR(CKD) >90 (>60 ml/min/1.73 sqM); Potassium 4.1 mmol/L (3.5-5.1); Sodium 135 mmol/L (137-145); Total Bilirubin 0.4 mg/dL (0.2-1.3); Total Protein 5.8 g/dL (6.3-8.2)
[2020-05-21 10:59] LABS: INR 0.9 (<1.2); Prothrombin Time 9.5 sec (9.0-12.0)
[2020-05-21 11:04] LABS: Partial Thromboplastin Time 20.7 sec (22.0-30.0)
[2020-05-21] MEDS ORDERED: NALOXONE 0.4 MG/ML 1 ML VIAL IV PRN (11:44)
[2020-05-21] MEDS ORDERED: ACETAMINOPHEN TAB 325 MG TAB PO PRN (11:44)
[2020-05-21] MEDS: SODIUM CHLORIDE 0.9% 1,000 ML IV SCH (12:11)
[2020-05-21 12:29] LABS: Amorphous Sediment,Urine Rare /hpf; Appearance,Urine Clear (Clear); Bacteria,Urine Rare /hpf; Bilirubin,Urine Negative (Negative); Blood,Urine Negative (Negative); Color,Urine Yellow; Glucose,Urine (UA) Negative (Negative); Ketones,Urine Negative (Negative); Leukocyte Esterase,Urine Small (Negative); Mucus,Urine Rare /hpf; Nitrite,Urine Negative (Negative); PH, Urine 7.5 (5.0-8.0); Protein,Urine Negative (Negative); RBC,Urine 1 /hpf (0-5); Specific Gravity,Urine 1.008 (1.001-1.035); Squamous Epithelial Cell,Urine 7 /hpf (0-4); Urobilinogen,Urine <2.0 mg/dL (<2.0); WBC,Urine 10 /hpf (0-5)
[2020-05-21 12:40] LABS: Amphetamine Screen,Urine Not Detected (NotDetected); Barbiturate Screen,Urine Not Detected (NotDetected); Benzodiazepines Screen,Urine Not Detected (NotDetected); Cocaine Screen,Urine Not Detected (NotDetected); Methadone Screen, Urine Not Detected (NotDetected); Opiate Screen,Urine Not Detected (NotDetected); Oxycodone Screen, Urine Not Detected (NotDetected); Phencyclidine Screen,Urine Not Detected (NotDetected); Tricyclic Antidepressant,Urine Not Detected (NotDetected); Urn Cannabinoid Scrn Not Detected (NotDetected)
--- NOTE | 2020-05-21 13:00 | ECHOF ---
Referral Reason:Palpitations; SOB; Dizziness MEASUREMENTS -------- HEIGHT: 165.1 cm WEIGHT: 77.1 kg BP: 116/82 RVIDd: 2.6 cm (< 3.3) IVSd: 1.0 cm (0.6 - 1.1) LVIDd: 4.6 cm (3.9 - 5.3) LVPWd: 1.0 cm (0.6 - 1.1) IVSs: 1.4 cm LVIDs: 3.1 cm LVPWs: 1.3 cm LA Diam: 3.2 cm (2.7 - 3.8) LAESV Index (A-L): 20.52 ml/m Ao Diam: 2.6 cm (2.0 - 3.7) AV Cusp: 2.1 cm (1.5 - 2.6) MV EXCURSION: 18.894 mm (> 18.000) MV EF SLOPE: 119 mm/s (70 - 150) EPSS: 0.5 cm MV E Andrea: 0.91 m/s MV DecT: 225 ms MV A Andrea: 0.80 m/s MV E/A Ratio: 1.13 RAP: 5.00 mmHg RVSP: 21.07 mmHg FINDINGS -------- Sinus rhythm. This was a technically good study. The left ventricular size is normal. Left ventricular wall thickness is normal. Overall left vent ricular systolic function is normal with, an EF between 60 - 65 %. The right ventricle is normal in size. Normal LA size by volume 22+/-6 ml/m2. The right atrium is normal in size. Interatrial and interventricular septum intact. The aortic valve is trileaflet and appears structurally normal. Mild mitral regurgitation is present. Mild tricuspid regurgitation present. Right ventricular systolic pressure is normal at < 35 mmHg. The aortic root size is normal. IVC Not well visulized. There is no pericardial effusion. CONCLUSIONS -------- 1. The left ventricular size is normal. 2. Left ventricular wall thickness is normal. 3. Overall left ventricular systolic function is normal with, an EF between 60 - 65 %. 4. Normal LA size by volume 22+/-6 ml/m2. 5. Mild mitral regurgitation is present. 6. Mild tricuspid regurgitation present. 7. There is no pericardial effusion. SUPERVISOR F[employer]IL[employer]ER PROCESSING: Shelbie Medrano RDCS
--- NOTE | 2020-05-21 14:09 | P.CRDCN ---
History of Present Illness History of present illness: HISTORY OF PRESENTING ILLNESS This is a pleasant 35-year-old female with no significant past medical history. She just established in the office with Dr. Morrow this morning. She is currently 22 weeks and for the previous 3 weeks she has been experiencing symptoms of dizziness, increased fatigue and shortness of breath. She states the first time it happened she was up walking around her house cleaning up for a democrat. It happened all of a sudden she felt quite dyspneic and then started feeling light headed light she would pass out, hot and flushed, nauseated and then noticed tingling in all four extremities. It happened again last week while she was here in the hospital being evaluated for pyelonephritis. Blood pressure was checked at that time and found to be low around 80 systolic. It did come back up to baseline of high 90's shortly thereafter and her symptoms did seem to improve with improvement of her blood pressure. Today while in the office seeing Dr. Morrow it happened again. She was sitting on the exam table and started feeling acutely warm and flushed. She then felt short of breath and light headed like she was going to pass out. She denies ever having had LOC associated with these symptoms. According to the office staff her heart rate was normal during this episode, no bradycardia appreciated. She is seen and examined resting comfortably in no acute distress. She denies chest pain, shortness of breath, dizziness or palpitations. Orthostatic vital signs are unremarkable. DIAGNOSTICS EKG reveals sinus mechanism with no acute ST or T-wave changes. Echocardiogram obtained reveals preserved LV systolic function with ejection fraction 60-65% and no valvular abnormalities noted. Laboratory reviewed, WBC 7.3, hemoglobin 11.2, platelets 185, sodium 135, potassium 4.1, creatinine 0.45, magnesium 1.8, cardiac enzymes negative 1 and TSH 3.73. Current daily medications include vitamins, folic acid, aspirin 81 mg daily and Keflex 500 mg 4 times a day. REVIEW OF SYSTEMS At the time of my exam: CONSTITUTIONAL: Denies fever or chills. CARDIOVASCULAR: Denies chest pain, shortness of breath, orthopnea, PND or palpitations. RESPIRATORY: Denies cough. GASTROINTESTINAL: Denies abdominal pain, diarrhea, constipation, nausea or vomit ing. MUSCULOSKELETAL: Denies myalgias. NEUROLOGIC: Denies numbness, tingling or weakness. ENDOCRINE: Denies fatigue, weight change, polydipsia or polyurina. GENITOURINARY: Denies burning, hematuria or urgency with micturation. HEMATOLOGIC: Denies history of anemia or bleeding. PHYSICAL EXAMINATION Blood pressure 109/76 heart rate 96 afebrile and maintaining oxygen saturation on room air. CONSTITUTIONAL: No apparent distress. HEENT: Head is normocephalic. Pupils are equal, round. Sclerae anicteric. Mucous membranes of the mouth are moist. No JVD. No carotid bruit. CHEST EXAMINATION: Lungs are clear to auscultation. No chest wall tenderness is noted on palpation or with deep breathing. HEART EXAMINATION: Regular rate and rhythm. S1, S2 heard. No murmurs, gallops or rub. ABDOMEN: Soft, nontender. Positive bowel sounds. EXTREMITIES: 2+ peripheral pulses, no lower extremity edema and no calf tenderness. NEUROLOGIC EXAMINATION: Patient is awake, alert and oriented x3. ASSESSMENT Dizziness and shortness of breath , 22 weeks with two fetuses Recent diagnosis of pyelonephritis maintained on PO antibiotics PLAN Continue to monitor her on telemetry. Clinically her symptoms sound vasovagal in nature. Possibly related to underlying infectious process. She also comments she may have been running a fever but has no actually checked her temperature. Agree with hydration overnight and ongoing monitoring. Thank you kindly for this consultation. Nurse Practitioner note has been reviewed, I agree with a documented findings and plan of care. Patient was seen and examined. Past Medical History Past Medical History: No Reported History Additional Past Medical History / Comment(s): scoliosis, migraines History of Any Multi-Drug Resistant Organisms: None Reported Past Surgical History: Appendectomy Additional Past Surgical History / Comment(s): bilateral feet Past Anesthesia/Blood Transfusion Reactions: No Reported Reaction Smoking Status: Former smoker - Past Family History Mother Family Medical History: Coronary Artery Disease (CAD) Medications and Allergies Home Medications Medication Instructions Recorded Confirmed Type Aspirin [Children's Aspirin] 81 mg PO DAILY 05/13/20 05/21/20 History Folic Acid 1 tab PO DAILY 05/13/20 05/21/20 History Pnv No.95/Ferrous Fum/Folic AC 1 tab PO DAILY 05/13/20 05/21/20 History [ Multivitamin Tablet] Cephalexin [Keflex] 500 mg PO Q6HR 7 Days #28 cap 05/15/20 05/21/20 Rx Allergies Allergy/AdvReac Type Severity Reaction Status Date / Time Pertussis Vaccines Allergy Unknown Verified 05/21/20 11:52 Physical Exam Vitals: Vital Signs Temp Pulse Pulse Pulse Pulse Resp BP 05/21/20 13:39 95 96 75 05/21/20 12:50 98.1 F 76 16 05/21/20 12:14 18 05/21/20 11:26 97 17 98/74 05/21/20 09:56 98.7 F 75 22 116/82 BP BP BP Pulse Ox 05/21/20 13:39 112/73 109/76 98/65 05/21/20 12:50 97/64 100 05/21/20 12:14 05/21/20 11:26 100 05/21/20 09:56 100 Intake and Output 05/20/20 05/21/20 05/21/20 22:59 06:59 14:59 Intake Total 50 Balance 50 Intake: Intake, IV Titration 50 Amount Sodium Chloride 0.9% 1, 50 000 ml @ 50 mls/hr IV . Q20H [facility] Rx#:[id number] Other: Weight 77.111 kg Results 05/21/20 10:24 05/21/20 10:24 Cardiac Enzymes 05/21/20 05/21/20 Range/Units 10:24 10:24 AST 24 (14-36) U/L Troponin I <0.012 (0.000-0.034) ng/mL Coagulation 05/21/20 Range/Units 10:24 PT 9.5 (9.0-12.0) sec APTT 20.7 L (22.0-30.0) sec CBC 05/21/20 Range/Units 10:24 WBC 7.3 (3.8-10.6) k/uL RBC 3.49 L (3.80-5.40) m/uL Hgb 11.2 L (11.4-16.0) gm/dL Hct 33.6 L (34.0-46.0) % Plt Count 185 (150-450) k/uL Comprehensive Metabolic Panel 05/21/20 Range/Units 10:24 Sodium 135 L (137-145) mmol/L Potassium 4.1 (3.5-5.1) mmol/L Chloride 108 H (98-107) mmol/L Carbon Dioxide 21 L (22-30) mmol/L BUN 8 (7-17) mg/dL Creatinine 0.45 L (0.52-1.04) mg/dL Glucose 95 (74-99) mg/dL Calcium 8.8 (8.4-10.2) mg/dL AST 24 (14-36) U/L ALT 13 (4-34) U/L Alkaline Phosphatase 62 (38-126) U/L Total Protein 5.8 L (6.3-8.2) g/dL Albumin 3.2 L (3.5-5.0) g/dL Current Medications Generic Name Dose Route Start Last Admin Trade Name Freq PRN Reason Stop Dose Admin Acetaminophen 650 mg 05/21/20 11:44 Tylenol Tab PO Q6HR PRN Mild Pain or Fever > 100.5 Aspirin 81 mg 05/22/20 09:00 Aspirin PO DAILY FARZANA Cephalexin 500 mg 05/21/20 18:00 Keflex PO 05/22/20 23:00 Q6HR FARZANA Folic Acid 1 mg 05/22/20 09:00 Folic Acid PO DAILY FARZANA Sodium Chloride 1,000 mls @ 50 mls/hr 05/21/20 11:45 05/21/20 12:11 Saline 0.9% IV 50 mls/hr .Q20H FARZANA Administration Multivi/Iron Carb/Fe Sulf/FA/Prenat 1 each 05/22/20 09:00 -U Capsule PO DAILY FARZANA Naloxone HCl 0.2 mg 05/21/20 11:44 Narcan IV Q2M PRN Opioid Reversal Intake and Output 05/20/20 05/21/20 05/21/20 22:59 06:59 14:59 Intake Total 50 Balance 50 Intake: Intake, IV Titration 50 Amount Sodium Chloride 0.9% 1, 50 000 ml @ 50 mls/hr IV . Q20H FAR[facility] Rx#:[id number] Other: Weight 77.111 kg Patient Weight 05/22/20 06:59 Weight 77.111 kg 05/21/20 10:24 05/21/20 10:24
--- NOTE | 2020-05-21 18:06 | P.OBCN ---
History of Present Illness Consult date: 05/21/20 Reason for consult: other () Chief complaint: Near-syncope and symptomatic hypotension History of present illness: This patient is a 35-year-old 8 para 6 female estimated date of confinement 09/22/2020 estimated gestational age 22-2/7 weeks with known twin gestation who is admitted to the hospital by cardiology for evaluation of near syncope and symptomatic hypotension. Patient's care is per Dr. Collazo. Her recent history is such that she was initially admitted about 1 week ago with suspected pyelonephritis. Patient at that time did have a urine culture positive for E. coli however did not have a fever nor did she have any significant white blood cell count elevation. Patient was given IV antibiotics and while she was in the hospital did have an episode of near syncope and hypot ension and at the time Dr. Collazo consulted her primary care physician and cardiology. Patient however was unable to find childcare and therefore left the hospital before this evaluation was done. Patient was sent home on oral Keflex at that time as well. Patient was seen in follow-up in the office yesterday by Dr. Collazo and still having persistent symptoms and therefore was scheduled to see cardiology which saw patient earlier this morning. She apparently had this similar episode in the office that were sent to the emergency department for evaluation and admission. Patient's otherwise has been uncomplicated. Cardiac evaluation here thus far has been unremarkable. Review of Systems Constitutional: Reports as per HPI Genitourinary: Reports Menstruation: Reports amenorrhea Past Medical History Additional Past Medical History / Comment(s): scoliosis, migraines History of Any Multi-Drug Resistant Organisms: None Reported Past Surgical History: Appendectomy, Orthopedic Surgery Additional Past Surgical History / Comment(s): bilateral feet Past Anesthesia/Blood Transfusion Reactions: No Reported Reaction Smoking Status: Former smoker Past Alcohol Use History: None Reported Past Drug Use History: None Reported - Past Family History Mother Family Medical History: Coronary Artery Disease (CAD) Medications and Allergies Home Medications Medication Instructions Recorded Confirmed Type Aspirin [Children's Aspirin] 81 mg PO DAILY 05/13/20 05/21/20 History Folic Acid 1 tab PO DAILY 05/13/20 05/21/20 History Pnv No.95/Ferrous Fum/Folic AC 1 tab PO DAILY 05/13/20 05/21/20 History [ Multivitamin Tablet] Cephalexin [Keflex] 500 mg PO Q6HR 7 Days #28 cap 05/15/20 05/21/20 Rx Allergies Allergy/AdvReac Type Severity Reaction Status Date / Time Pertussis Vaccines Allergy Unknown Verified 05/21/20 11:52 Exam Vital Signs Temp Pulse Pulse Pulse Pulse Resp BP 05/21/20 13:39 95 96 75 05/21/20 12:50 98.1 F 76 16 05/21/20 12:14 18 05/21/20 11:26 97 17 98/74 05/21/20 09:56 98.7 F 75 22 116/82 BP BP BP Pulse Ox 05/21/20 13:39 112/73 109/76 98/65 05/21/20 12:50 97/64 100 05/21/20 12:14 05/21/20 11:26 100 05/21/20 09:56 100 Intake and Output 05/21/20 05/21/20 05/21/20 06:59 14:59 22:59 Intake Total 50 Balance 50 Intake: Intake, IV Titration 50 Amount Sodium Chloride 0.9% 1, 50 000 ml @ 50 mls/hr IV . Q20H [facility] Rx#:[id number] Other: Weight 77.111 kg Results Result Diagrams: 05/21/20 10:24 05/21/20 10:24 Abnormal Lab Results - Last 24 Hours (Table) 05/21/20 05/21/20 05/21/20 Range/Units 10:23 10:24 10:24 RBC 3.49 L (3.80-5.40) m/uL Hgb 11.2 L (11.4-16.0) gm/dL Hct 33.6 L (34.0-46.0) % APTT 20.7 L (22.0-30.0) sec Sodium (137-145) mmol/L Chloride (98-107) mmol/L Carbon Dioxide (22-30) mmol/L Creatinine (0.52-1.04) mg/dL Total Protein (6.3-8.2) g/dL Albumin (3.5-5.0) g/dL Ur Leukocyte Esterase Small H (Negative) Urine WBC 10 H (0-5) /hpf Ur Squamous Epith Cells 7 H (0-4) /hpf Amorphous Sediment Rare H (None) /hpf Urine Bacteria Rare H (None) /hpf Urine Mucus Rare H (None) /hpf 05/21/20 Range/Units 10:24 RBC (3.80-5.40) m/uL Hgb (11.4-16.0) gm/dL Hct (34.0-46.0) % APTT (22.0-30.0) sec Sodium 135 L (137-145) mmol/L Chloride 108 H (98-107) mmol/L Carbon Dioxide 21 L (22-30) mmol/L Creatinine 0.45 L (0.52-1.04) mg/dL Total Protein 5.8 L (6.3-8.2) g/dL Albumin 3.2 L (3.5-5.0) g/dL Ur Leukocyte Esterase (Negative) Urine WBC (0-5) /hpf Ur Squamous Epith Cells (0-4) /hpf Amorphous Sediment (None) /hpf Urine Bacteria (None) /hpf Urine Mucus (None) /hpf Assessment and Plan Assessment: This is a 35-year-old 8 para 6 female 22-2/7 week intrauterine with known twin gestation. Patient is admitted for cardiac evaluation secondary to symptomatic hypotension and vasovagal symptoms. Given that her evaluation thus far has been negative, it appears that her symptoms most likely are secondary to normal physiologic changes that occur during . Fortunately although these symptoms make the patient uncomfortable, they are not necessarily harmful to her or the . I completely agree with a [facility] cardiac evaluation to rule out other other pathologic etiologies. Patient understands that if the evaluation is negative, her only recourse is to try to avoid those situations that exacerbate her symptoms and increase her fluid intake. Her urinary tract infection appears to have cleared however I did recommend that she continue her oral antibiotic until Tuesday. Patient will be seen in follow-up with Dr. Collazo tomorrow. Thank you very much for this consultation. (1) Twin gestation in second trimester Current Visit: Yes Status: Acute Code(s): O30.002 - TWIN PREG, UNSP NUM PLCNTA & AMNIO SACS, SECOND TRIMESTER SNOMED Code(s): 39230392 (2) Symptomatic hypotension Current Visit: Yes Status: Acute Code(s): I95.9 - HYPOTENSION, UNSPECIFIED SNOMED Code(s): 18756863
[2020-05-21] MEDS: CEPHALEXIN 500 MG CAP PO SCH ×2 (18:26→23:16)
--- NOTE | 2020-05-21 23:20 | HP ---
HISTORY AND PHYSICAL This patient is a 35-year-old white female who came in with some tachycardia from the cardiology office. She had an echo that was normal here in the hospital. She has symptoms of dizziness, increased fatigue and possible vasovagal syncope when she sits for a prolonged period of time. This mostly happens in a sitting position, but in different positions this occurs. She is with twins in the second trimester. She has been IV antibiotics. Now she is on oral Keflex. Fourteen-point review of systems negative except for mentioned in HPI. Blood pressure 109 over 70s. CARDIOVASCULAR: S1, S2. LUNGS: Transmitted upper airway sounds. GI: Soft. HEMATOLOGY: Negative Homans. PSYCH: Fair mood and affect. NEUROLOGIC: Alert and oriented x3. ASSESSMENT: 1. Dizziness, shortness of breath; possibly vasovagal syncope. 2. at 22 weeks with twins. 3. Recent pyelonephritis and urinary tract infection. Continue with Keflex. Rehydrate. Vasovagal syncope is most likely a symptom. Possibly discharge home in the morning. MMODL / IJN: [id number] /
[2020-05-22] MEDS: CEPHALEXIN 500 MG CAP PO SCH ×2 (06:44→12:27)
[2020-05-22 07:38] VITALS: BP 107/71; PULSE 90; RESP 16; TEMP 98
[2020-05-22] MEDS: SODIUM CHLORIDE 0.9% 1,000 ML IV SCH (08:49)
[2020-05-22] MEDS ORDERED: PRENATAL VIT-IRON-FOLIC ACID 1 EACH CAP PO SCH (09:00)
[2020-05-22] MEDS ORDERED: ASPIRIN 81 MG PO SCH (09:00)
[2020-05-22] MEDS ORDERED: FOLIC ACID 1 MG TAB PO SCH (09:00)
--- NOTE | 2020-05-22 09:17 | P.PN ---
Subjective HISTORY OF PRESENTING ILLNESS This is a pleasant 35-year-old female with no significant past medical history. She just established in the office with Dr. Morrow this morning. She is seen and examined resting comfortably in bed in no acute distress. She has had no further symptoms of dizziness since arriving at the hospital. Telemetry tracings have been unremarkable. She has no chest pain, palpitations or shortness of breath. Blood pressure 107/71 heart rate 90 afebrile maintaining oxygen saturation on room air. PHYSICAL EXAMINATION CONSTITUTIONAL: No apparent distress. HEENT: Head is normocephalic. Pupils are equal, round. Sclerae anicteric. Mucous membranes of the mouth are moist. No JVD. No carotid bruit. CHEST EXAMINATION: Lungs are clear to auscultation. No chest wall tenderness is noted on palpation or with deep breathing. HEART EXAMINATION: Regular rate and rhythm. S1, S2 heard. No murmurs, gallops or rub. EXTREMITIES: 2+ peripheral pulses, no lower extremity edema and no calf tenderness. ASSESSMENT Dizziness and shortness of breath , 22 weeks with two fetuses Recent diagnosis of pyelonephritis maintained on PO antibiotics PLAN Stable for discharge from a cardiac perspective. Recommend 14 day event monitor to be picked up from the office upon discharge. Follow-up with Dr. Morrow in 3 weeks. Symptoms likely related to vasovagal reaction secondary to pyelonephritis. Nurse Practitioner note has been reviewed, I agree with a documented findings and plan of care. Patient was seen and examined. Objective - Vital Signs Vital signs: Vital Signs Temp 98.0 F 05/22/20 07:36 Pulse 90 05/22/20 07:36 Resp 16 05/22/20 07:36 BP 107/71 05/22/20 07:36 Pulse Ox 98 05/22/20 07:36 Intake & Output 05/21/20 05/22/20 05/22/20 18:59 06:59 18:59 Intake Total 50 900 Balance 50 900 Weight 77.111 kg Intake: Intake, IV Titration 50 Amount Sodium Chloride 0.9% 1, 50 000 ml @ 50 mls/hr IV . Q20H FARZANA Rx#:[id number] Oral 900 Other: Voiding Method Toilet Toilet # Voids 2 - Labs CBC & Chem 7: 05/21/20 10:24 05/21/20 10:24 Labs: Abnormal Lab Results - Last 24 Hours (Table) 05/21/20 05/21/20 05/21/20 Range/Units 10:23 10:24 10:24 RBC 3.49 L (3.80-5.40) m/uL Hgb 11.2 L (11.4-16.0) gm/dL Hct 33.6 L (34.0-46.0) % APTT 20.7 L (22.0-30.0) sec Sodium (137-145) mmol/L Chloride (98-107) mmol/L Carbon Dioxide (22-30) mmol/L Creatinine (0.52-1.04) mg/dL Total Protein (6.3-8.2) g/dL Albumin (3.5-5.0) g/dL Ur Leukocyte Esterase Small H (Negative) Urine WBC 10 H (0-5) /hpf Ur Squamous Epith Cells 7 H (0-4) /hpf Amorphous Sediment Rare H (None) /hpf Urine Bacteria Rare H (None) /hpf Urine Mucus Rare H (None) /hpf 05/21/20 Range/Units 10:24 RBC (3.80-5.40) m/uL Hgb (11.4-16.0) gm/dL Hct (34.0-46.0) % APTT (22.0-30.0) sec Sodium 135 L (137-145) mmol/L Chloride 108 H (98-107) mmol/L Carbon Dioxide 21 L (22-30) mmol/L Creatinine 0.45 L (0.52-1.04) mg/dL Total Protein 5.8 L (6.3-8.2) g/dL Albumin 3.2 L (3.5-5.0) g/dL Ur Leukocyte Esterase (Negative) Urine WBC (0-5) /hpf Ur Squamous Epith Cells (0-4) /hpf Amorphous Sediment (None) /hpf Urine Bacteria (None) /hpf Urine Mucus (None) /hpf
== END 2020-05-22 15:43 | disposition home or self-care (01) ==
LOC: EC 09:53 → 3NCARDOBS 11:55
PROVIDERS: ADMIT Family Medicine; ATTEND Family Medicine
DX: R00.2 Palpitations (principal); R42 Dizziness and giddiness; R06.02 Shortness of breath; N12 Tubulo-interstitial nephritis, not specified as acute or chronic; O23.42 Unspecified infection of urinary tract in pregnancy, second trimester; O30.002 Twin pregnancy, unspecified number of placenta and unspecified number of amniotic sacs, second trimester; Z3A.22 22 weeks gestation of pregnancy; B96.20 Unspecified Escherichia coli [E. coli] as the cause of diseases classified elsewhere; O23.02 Infections of kidney in pregnancy, second trimester; Z87.891 Personal history of nicotine dependence; M41.9 Scoliosis, unspecified; G43.909 Migraine, unspecified, not intractable, without status migrainosus; Z98.890 Other specified postprocedural states; Z82.49 Family history of ischemic heart disease and other diseases of the circulatory system; Z79.82 Long term (current) use of aspirin; Z79.899 Other long term (current) drug therapy; Z88.7 Allergy status to serum and vaccine; I95.9 Hypotension, unspecified
CPT/HCPCS: 96360; 96361; 99285; 36415; 93005; 93306; 80053; 84443; 83735; 84484; 85025; 85610; 85730; 81001; 80306; G0378 ×2; S0197

== ENCOUNTER → 2020-07-18 | Outpatient (CLI) | payer OTHER | END | disposition home or self-care (01) | LOC: LABWHC1 13:13 | PROVIDERS: ATTEND Family Medicine | DX: Z13.88 Encounter for screening for disorder due to exposure to contaminants (principal) | CPT/HCPCS: 36415; 83655 ==

== ENCOUNTER 2020-07-21 21:02 | Inpatient (IN) | payer OTHER ==
[2020-07-21] MEDS ORDERED: SODIUM CHLORIDE 0.9% 1,000 ML IV STA (21:48)
[2020-07-21] MEDS ORDERED: ACETAMINOPHEN TAB 500 MG TAB PO STA (21:48)
--- NOTE | 2020-07-21 22:08 | ED ---
General Adult HPI - General Chief complaint: Fever Stated complaint: Fever,nausea,headache Time Seen by Provider: 07/21/20 21:43 Source: patient, RN notes reviewed Mode of arrival: wheelchair Limitations: no limitations - History of Present Illness Initial comments: 35-year-old female currently 31 weeks with twin gestation presents to the emergency room for a chief complaint of fever. Patient reports that she had a fever starting yesterday. She did take Tylenol yesterday but has not taken any today. Patient admits to nausea denies vomiting. Admits to body aches. Patient is not have a cough. She admits to a dry scratchy throat but denies sore throat. Denies abdominal pain. Denies dysuria or flank pain. She did speak to on-call CASHIER AND SALESPERSON who recommended she come to the ER.Patient has no other complaints at this time including shortness of breath, chest pain, abdominal pain, nausea or vomiting, headache, or visual changes. - Related Data Home Medications Medication Instructions Recorded Confirmed Aspirin [Children's Aspirin] 81 mg PO DAILY 05/13/20 07/21/20 Folic Acid 1 tab PO DAILY 05/13/20 07/21/20 Pnv No.95/Ferrous Fum/Folic AC 1 tab PO DAILY 05/13/20 07/21/20 [ Multivitamin Tablet] Metoprolol Tartrate [Lopressor] 12.5 mg PO BID 07/21/20 07/21/20 Allergies Allergy/AdvReac Type Severity Reaction Status Date / Time Pertussis Vaccines Allergy Unknown Verified 07/21/20 21:58 Review of Systems ROS Statement: Those systems with pertinent positive or pertinent negative responses have been documented in the HPI. ROS Other: All systems not noted in ROS Statement are negative. Past Medical History Past Medical History: No Reported History Additional Past Medical History / Comment(s): scoliosis, migraines History of Any Multi-Drug Resistant Organisms: None Reported Past Surgical History: Appendectomy, Orthopedic Surgery Additional Past Surgical History / Comment(s): bilateral feet Past Anesthesia/Blood Transfusion Reactions: No Reported Reaction Past Psychological History: No Psychological Hx Reported Smoking Status: Former smoker Past Alcohol Use History: None Reported Past Drug Use History: None Reported - Past Family History Mother Family Medical History: Coronary Artery Disease (CAD) General Exam Limitations: no limitations General appearance: alert, in no apparent distress Head exam: Present: atraumatic, normocephalic, normal inspection Eye exam: Present: normal appearance, PERRL, EOMI. Absent: scleral icterus, conjunctival injection, periorbital swelling ENT exam: Present: normal exam, normal oropharynx (Uvula midline, no tonsillar exudates bilaterally.), mucous membranes moist, TM's normal bilaterally, normal external ear exam Neck exam: Present: normal inspection, full ROM. Absent: tenderness, meningismus, lymphadenopathy Respiratory exam: Present: normal lung sounds bilaterally. Absent: respiratory distress, wheezes, rales, rhonchi, stridor Cardiovascular Exam: Present: regular rate, normal rhythm, normal heart sounds. Absent: systolic murmur, diastolic murmur, rubs, gallop, clicks GI/Abdominal exam: Present: soft, normal bowel sounds, other (Gravid abdomen). Absent: distended, tenderness, guarding, rebound, rigid Back exam: Absent: CVA tenderness (R), CVA tenderness (L) Neurological exam: Present: alert Course Vital Signs 07/21/20 07/21/20 21:05 22:19 Temperature 101.0 F H Pulse Rate 144 H 107 H Respiratory 18 18 Rate Blood Pressure 90/59 121/74 O2 Sat by Pulse 98 98 Oximetry Medical Decision Making - Medical Decision Making Patient initially presents febrile with a temperature of 101. Reflexive tachycardia of 144. Initially blood pressure 90 were 59. Patient's vitals did normalize to a heart rate of 107 and a blood pressure of 121/74. CBC shows a stable hemoglobin, and of 11. Slight thrombocytopenia with platelet count of 92 which may be related to viral syndrome. CMP shows slight hyponatremia, hypocalcemia. Urinalysis shows 2+ ketones consistent with starvation ketosis. Coronavirus influenza and strep were negative. Chest x-ray does show possible infiltrate right lower lobe. Case was discussed with Dr. Mccarthy who spoke with Dr. Garcia. She does accept this admission under Dr. Ward. Patient's fever likely secondary to pneumonia. She'll be treated with IV antibiotics. Mother baby contacted for NST - Lab Data Result diagrams: 07/21/20 21:48 07/21/20 21:48 Lab Results 07/21/20 07/21/20 07/21/20 Range/Units 21:48 21:48 21:48 WBC 6.5 (3.8-10.6) k/uL RBC 3.51 L (3.80-5.40) m/uL Hgb 11.0 L (11.4-16.0) gm/dL Hct 32.9 L (34.0-46.0) % MCV 93.6 (80.0-100.0) fL MCH 31.4 (25.0-35.0) pg MCHC 33.5 (31.0-37.0) g/dL RDW 13.8 (11.5-15.5) % Plt Count 92 L D (150-450) k/uL Neutrophils % Not Reportable Neutrophils % (Manual) 84 % Band Neuts % (Manual) 3 % Lymphocytes % Not Reportable Lymphocytes % (Manual) 10 % Monocytes % Not Reportable Monocytes % (Manual) 3 % Eosinophils % Not Reportable Basophils % Not Reportable Neutrophils # Not Reportable Neutrophils # (Manual) 5.60 (1.3-7.7) k/uL Lymphocytes # Not Reportable Lymphocytes # (Manual) 0.65 L (1.0-4.8) k/uL Monocytes # Not Reportable Monocytes # (Manual) 0.20 (0-1.0) k/uL Eosinophils # Not Reportable Basophils # Not Reportable Nucleated RBCs 0 (0-0) /100 WBC Manual Slide Review Performed Poikilocytosis Slight Sodium 131 L (137-145) mmol/L Potassium 4.2 (3.5-5.1) mmol/L Chloride 108 H (98-107) mmol/L Carbon Dioxide 19 L (22-30) mmol/L Anion Gap 4 mmol/L BUN <2 L (7-17) mg/dL Creatinine 0.49 L (0.52-1.04) mg/dL Est GFR (CKD-EPI)AfAm >90 (>60 ml/min/1.73 sqM) Est GFR (CKD-EPI)NonAf >90 (>60 ml/min/1.73 sqM) Glucose 100 H (74-99) mg/dL Calcium 8.0 L (8.4-10.2) mg/dL Total Bilirubin 1.3 (0.2-1.3) mg/dL AST 65 H (14-36) U/L ALT 19 (4-34) U/L Alkaline Phosphatase 165 H (38-126) U/L Total Protein 5.9 L (6.3-8.2) g/dL Albumin 3.0 L (3.5-5.0) g/dL Urine Color Yellow Urine Appearance Clear (Clear) Urine pH 6.0 (5.0-8.0) Ur Specific [place] 1.006 (1.001-1.035) Urine Protein Negative (Negative) Urine Glucose (UA) Negative (Negative) Urine Ketones 3+ H (Negative) Urine Blood Negative (Negative) Urine Nitrite Negative (Negative) Urine Bilirubin Negative (Negative) Urine Urobilinogen <2.0 (<2.0) mg/dL Ur Leukocyte Esterase Negative (Negative) Coronavirus (PCR) (Not Detectd) Influenza Type A RNA (Not Detectd) Influenza Type B (PCR) (Not Detectd) Group A Strep Rapid (Negative) 07/21/20 Range/Units 21:48 WBC (3.8-10.6) k/uL RBC (3.80-5.40) m/uL Hgb (11.4-16.0) gm/dL Hct (34.0-46.0) % MCV (80.0-100.0) fL MCH (25.0-35.0) pg MCHC (31.0-37.0) g/dL RDW (11.5-15.5) % Plt Count (150-450) k/uL Neutrophils % Neutrophils % (Manual) % Band Neuts % (Manual) % Lymphocytes % Lymphocytes % (Manual) % Monocytes % Monocytes % (Manual) % Eosinophils % Basophils % Neutrophils # Neutrophils # (Manual) (1.3-7.7) k/uL Lymphocytes # Lymphocytes # (Manual) (1.0-4.8) k/uL Monocytes # Monocytes # (Manual) (0-1.0) k/uL Eosinophils # Basophils # Nucleated RBCs (0-0) /100 WBC Manual Slide Review Poikilocytosis Sodium (137-145) mmol/L Potassium (3.5-5.1) mmol/L Chloride (98-107) mmol/L Carbon Dioxide (22-30) mmol/L Anion Gap mmol/L BUN (7-17) mg/dL Creatinine (0.52-1.04) mg/dL Est GFR (CKD-EPI)AfAm (>60 ml/min/1.73 sqM) Est GFR (CKD-EPI)NonAf (>60 ml/min/1.73 sqM) Glucose (74-99) mg/dL Calcium (8.4-10.2) mg/dL Total Bilirubin (0.2-1.3) mg/dL AST (14-36) U/L ALT (4-34) U/L Alkaline Phosphatase (38-126) U/L Total Protein (6.3-8.2) g/dL Albumin (3.5-5.0) g/dL Urine Color Urine Appearance (Clear) Urine pH (5.0-8.0) Ur Specific [place] (1.001-1.035) Urine Protein (Negative) Urine Glucose (UA) (Negative) Urine Ketones (Negative) Urine Blood (Negative) Urine Nitrite (Negative) Urine Bilirubin (Negative) Urine Urobilinogen (<2.0) mg/dL Ur Leukocyte Esterase (Negative) Coronavirus (PCR) Not Detected (Not Detectd) Influenza Type A RNA Not Detected (Not Detectd) Influenza Type B (PCR) Not Detected (Not Detectd) Group A Strep Rapid Negative (Negative) Disposition Clinical Impression: Fever, Pneumonia, Twin gestation in third trimester Disposition: ADMITTED IP TO THIS HOSP Is patient prescribed a controlled substance at d/c from ED?: No Referrals: Marcos Davis MD [Primary Care Provider] - 1-2 days Time of Disposition: 23:51
[2020-07-21 22:31] LABS: HCT 32.9 % (34.0-46.0); MCH 31.4 pg (25.0-35.0); MCHC 33.5 g/dL (31.0-37.0); MCV 93.6 fL (80.0-100.0); Mean Platelet Volume 11.9; Poikilocytosis Slight; RBC 3.51 m/uL (3.80-5.40); RDW 13.8 % (11.5-15.5); WBC 6.5 k/uL (3.8-10.6)
[2020-07-21 22:36] LABS: ALT 19 U/L (4-34); AST 65 U/L (14-36); African American GFR (CKD) >90 (>60 ml/min/1.73 sqM); Alkaline Phosphatase 165 U/L (38-126); Anion Gap 4 mmol/L; Appearance,Urine Clear (Clear); Bilirubin,Urine Negative (Negative); Blood Urea Nitrogen <2 mg/dL (7-17); Blood,Urine Negative (Negative); Carbon Dioxide 19 mmol/L (22-30); Chloride 108 mmol/L (98-107); Color,Urine Yellow; Glucose 100 mg/dL (74-99); Glucose,Urine (UA) Negative (Negative); Ketones,Urine 3+ (Negative); Leukocyte Esterase,Urine Negative (Negative); Nitrite,Urine Negative (Negative); Non-African American GFR(CKD) >90 (>60 ml/min/1.73 sqM); Protein,Urine Negative (Negative); Sodium 131 mmol/L (137-145); Specific Gravity,Urine 1.006 (1.001-1.035); Total Bilirubin 1.3 mg/dL (0.2-1.3); Total Protein 5.9 g/dL (6.3-8.2); Urobilinogen,Urine <2.0 mg/dL (<2.0)
[2020-07-21 22:41] LABS: SARS-CoV-2 RNA Rapid Abbott Not Detected (Not Detectd)
[2020-07-21 22:43] LABS: Potassium 4.2 mmol/L (3.5-5.1)
--- NOTE | 2020-07-21 22:48 | XR ---
EXAMINATION TYPE: XR chest 1V portable DATE OF EXAM: 07/21/2020 COMPARISON: NONE HISTORY: Cough and fever TECHNIQUE: Single view FINDINGS: There is some thoracolumbar dextroscoliosis. There is possible infiltrate at the medial rig ht lung base.. There is no heart failure. There are no hilar masses. Heart size is normal. IMPRESSION: There is possible infiltrate right lower lobe.. Dextroscoliosis.
[2020-07-21 23:09] LABS: Band Neutrophils % 3 %; Lymphocytes # (M) 0.65 k/uL (1.0-4.8); Neutrophils % (M) 84 %; Nucleated Red Blood Cells 0 /100 WBC (0-0); Total Cells Counted 100
[2020-07-21 23:10] LABS: Platelet Count 92 k/uL (150-450)
[2020-07-21] MEDS ORDERED: cefTRIAXone IN SWFI 1,000 MG/10 ML SYRINGE IVP STA (23:43)
[2020-07-21] MEDS ORDERED: NALOXONE 0.4 MG/ML 1 ML VIAL IV PRN (23:52)
[2020-07-22] MEDS ORDERED: AZITHROMYCIN 500 MG in SODIUM CHLORIDE 0.9% 250 ML IVPB ONE ×2
[2020-07-22] MEDS: SODIUM CHLORIDE 0.9% 1,000 ML IV SCH ×3 (00:22→21:44)
[2020-07-22] MEDS: ONDANSETRON 4 MG/2 ML VIAL IVP PRN ×2 (09:54→21:00)
[2020-07-22] MEDS: ACETAMINOPHEN TAB 325 MG TAB PO PRN (09:54)
[2020-07-22] MEDS: ALBUTEROL NEBULIZED 2.5 MG/3 ML INHALATION SCH ×3 (12:25→21:16)
--- NOTE | 2020-07-22 15:28 | CONS ---
CONSULTATION PULMONARY/CRITICAL CARE CONSULTATION: DATE OF SERVICE: 07/22/2020 This is a 35-year-old female who is 7, para 6, currently 31 weeks with twins. The patient comes into the emergency room complaining of just not feeling well beginning over the weekend. She had fever and chills. She also complained of being nauseated. She had muscle aches and joint aches and also a headache. She really denies any shortness of breath. She is not really coughing per se. The patient's chest x-ray showed a patchy infiltrate in the right lower lobe. She is going to be admitted to the hospital for community-acquired pneumonia. The STORE CLERK CHECKER doctor, Dr. Collazo, asked me to come down here and see the patient. Her influenza studies were negative. Her COVID testing was negative as well. The patient is resting comfortably in the emergency room. She is in bed 17. Anyway, we just wrote some orders for some azithromycin and ceftriaxone. This is standard treatment for community-acquired pneumonia. HOME MEDICATIONS: Reviewed. She is on aspirin, folic acid, vitamins and Lopressor. ALLERGIES: PERTUSSIS VACCINE. MEDICAL HISTORY: Positive for scoliosis and migraine cephalgia. SURGICAL HISTORY: Surgical history includes previous feet surgery as well as appendectomy. SOCIAL HISTORY: Positive for previous tobacco use. Does not smoke currently. No alcohol use or illicit drug use. FAMILY HISTORY: Positive for mother with coronary disease. REVIEW OF SYSTEMS: CONSTITUTIONAL: Fever, chills. NEUROLOGIC: Headache. HEENT: Negative. CARDIOVASCULAR: Negative. PULMONARY: GI: Nausea. : Negative. RHEUMATOLOGIC: Negative. IMMUNOLOGIC: Negative. ENDOCRINOLOGIC: Negative. DERMATOLOGIC: Negative. PHYSICAL EXAMINATION: VITAL SIGNS: Current vital signs are reviewed. Temperature is 97.7, T-max 101, heart rate 105, respiratory rate 18, blood pressure 108/74, mean 85, room-air saturation 100%. GENERAL APPEARANCE: Appears in no acute distress. HEENT: Examination is grossly unremarkable. NECK: Supple. Full range of motion. No adenopathy. Neck veins are flat. CARDIOVASCULAR: Examination reveals regular rhythm and rate. S1, S2 normal. No S3, S4 or murmur. LUNGS: Lungs reveal a few scattered rhonchi. No wheezes or crackles. Breath sounds equal. ABDOMEN: Gravid. Bowel sounds are not noted. EXTREMITIES: Intact. No edema. SKIN: Without rash. NEUROLOGIC: Neurologic examination is brief but nonfocal. LABS/IMAGING: White count 6.5, hemoglobin 11, hematocrit 32.9, platelet count 92,000. Sodium 131, potassium 4.2, chloride 108, CO2 19. Anion gap is 4. BUN is less than 2, creatinine 0.49, glucose 100, calcium 8, AST 65, alkaline phosphatase 165, albumin 3. Urine is clean. COVID testing was negative. Influenza studies were negative. Group A strep rapid testing was negative. Microbiology is currently pending or negative. Chest x-ray shows some patchy infiltrate, right base. Current medications are reviewed. ASSESSMENT: 1. Community-acquired pneumonia, right lower lobe. 2. History of migraine cephalgia. 3. History of scoliosis. 4. Intrauterine 31 weeks in a female who is . PLAN: Currently the patient is stable. She will be admitted to the general medical floor. I did speak to the STORE CLERK CHECKER doctor. We started her on Rocephin and azithromycin. Breathing treatments are added. No additional recommendations made. Will continue to follow. Prognosis is good. MMODL / IJN: [id number] /
[2020-07-22] MEDS: METOPROLOL TARTRATE 12.5 MG TAB PO SCH (21:43)
[2020-07-22] MEDS: AZITHROMYCIN 500 MG in SODIUM CHLORIDE 0.9% 250 ML IVPB SCH (22:39)
--- NOTE | 2020-07-23 05:57 | HP ---
HISTORY AND PHYSICAL Soniya Morales is a 35-year-old, with twins, mother, gestational age 31 weeks with fever. She was found to have community-acquired pneumonia, some nausea. CAUSTIC LOADER wanted her admitted to medical floor with medical doctor, started on IV Rocephin and azithromycin by acid washer operator. MEDICINES: 1. Aspirin 81 mg daily. 2. Folic acid 1 mg daily. 3. vitamin 1 a day. 4. Lopressor 12.5 b.i.d. ALLERGIES: PERTUSSIS. REVIEW OF SYSTEMS: Fourteen-point review of systems negative except for mentioned in HPI. SURGERIES: Appendectomy, orthopedic surgery. SOCIAL HISTORY: Former smoker. No alcohol. No drugs. PHYSICAL EXAMINATION: T-max 101, heart rate 107 to 144, respiratory rate 16 to 18, blood pressure 90 to 121 systolic over 70s, O2 of 98 and 99. CARDIOVASCULAR: S1, S2. LUNGS: Mostly clear. Some scattered rhonchi. HEMATOLOGY: Negative Homans. GI: Soft. INTEGUMENT: No rash. ASSESSMENT: 1. Chronic obstructive pulmonary disease exacerbation. 2. Community-acquired pneumonia. 3. , twins gestation, third trimester. Prognosis guarded. Continue broad-spectrum antibiotics. Pulmonary consult. MMODL / IJN: [id number] /
[2020-07-23] MEDS: SODIUM CHLORIDE 0.9% 1,000 ML IV SCH ×2 (06:04→16:16)
[2020-07-23 07:14] LABS: MCH 31.8 pg (25.0-35.0); MCHC 33.3 g/dL (31.0-37.0); MCV 95.5 fL (80.0-100.0); Mean Platelet Volume 12.1; Platelet Count 79 k/uL (150-450); Poikilocytosis Slight; RBC 3.14 m/uL (3.80-5.40); RDW 13.7 % (11.5-15.5); WBC 5.4 k/uL (3.8-10.6)
[2020-07-23] MEDS: METOPROLOL TARTRATE 12.5 MG TAB PO SCH ×2 (08:45→21:38)
[2020-07-23] MEDS: FOLIC ACID 1 MG TAB PO SCH (08:45)
[2020-07-23] MEDS: ASPIRIN 81 MG PO SCH (08:45)
--- NOTE | 2020-07-23 08:55 | P.OBCN ---
History of Present Illness Consult date: 07/23/20 Requesting physician: Romelia Mccarthy Reason for consult: early problem Chief complaint: pneumonia History of present illness: Priscilla is seen and evaluated on 1109. I did take her record to the chart yesterday. She was seen in the emergency room and was evaluated. She relates that she has minimal signs or symptoms of pneumonia she may have had a little shortness of breath but she had previously attributed that to the itself but she is feeling well. She denied any other fevers other than the initial one when she arrived. Review of labs did show white blood cell count was normal. She does have low platelet count which will need to be evaluated following discharge more thorough in the future. She is also noted to have mildly elevated AST which is consistent with her prior labs. She does have a twin gestation and will plan to continue to do monitoring daily as needed. We'll defer to your medical and pulmonary assessments. Past Medical History Past Medical History: No Reported History Additional Past Medical History / Comment(s): scoliosis, migraines, vasovagal episodes during History of Any Multi-Drug Resistant Organisms: None Reported Past Surgical History: Appendectomy, Orthopedic Surgery Additional Past Surgical History / Comment(s): bilateral feet Past Anesthesia/Blood Transfusion Reactions: No Reported Reaction Past Psychological History: No Psychological Hx Reported Smoking Status: Former smoker Past Alcohol Use History: None Reported Past Drug Use History: None Reported - Past Family History Mother Family Medical History: Coronary Artery Disease (CAD) Medications and Allergies Home Medications Medication Instructions Recorded Confirmed Type Aspirin [Children's Aspirin] 81 mg PO DAILY 05/13/20 07/21/20 History Folic Acid 1 tab PO DAILY 05/13/20 07/21/20 History Pnv No.95/Ferrous Fum/Folic AC 1 tab PO DAILY 05/13/20 07/21/20 History [ Multivitamin Tablet] Metoprolol Tartrate [Lopressor] 12.5 mg PO BID 07/21/20 07/21/20 History Allergies Allergy/AdvReac Type Severity Reaction Status Date / Time Pertussis Vaccines Allergy Unknown Verified 07/21/20 21:58 Exam Osteopathic Statement: *. No significant issues noted on an osteopathic str uctural exam other than those noted in the History and Physical/Consult. Vital Signs Temp Pulse Pulse Resp BP BP Pulse Ox 07/23/20 07:00 98.5 F 95 20 99/62 07/23/20 04:15 18 07/23/20 02:45 98.8 F 99 18 97/63 96 07/23/20 00:15 18 07/22/20 21:35 106 H 07/22/20 21:19 106 H 07/22/20 19:50 18 07/22/20 19:45 99.0 F 109 H 18 107/65 100 07/22/20 18:22 98.7 F 116 H 18 109/73 100 07/22/20 16:53 97.9 F 104 H 18 94/54 100 07/22/20 15:27 104 H 07/22/20 15:16 103 H 07/22/20 12:38 98.1 F 100 18 95/66 100 07/22/20 12:35 108 H 07/22/20 12:26 104 H 07/22/20 09:54 98.6 F Intake and Output 07/22/20 07/23/20 07/23/20 22:59 06:59 14:59 Other: Voiding Method Toilet # Voids 1 1 Weight 83.915 kg Results Result Diagrams: 07/23/20 06:12 07/21/20 21:48 Abnormal Lab Results - Last 24 Hours (Table) 07/23/20 Range/Units 06:12 RBC 3.14 L (3.80-5.40) m/uL Hgb 10.0 L (11.4-16.0) gm/dL Hct 30.0 L (34.0-46.0) % Microbiology - Last 24 Hours (Table) 07/21/20 21:48 Group A Strep Throat Culture - Preliminary Throat
[2020-07-23] MEDS: ALBUTEROL NEBULIZED 2.5 MG/3 ML INHALATION SCH ×4 (09:04→20:19)
[2020-07-23] MEDS: ONDANSETRON 4 MG/2 ML VIAL IVP PRN (09:24)
[2020-07-23] MEDS: PRENATAL VIT-IRON-FOLIC ACID 1 EACH CAP PO SCH (09:25)
[2020-07-23 11:08] LABS: Band Neutrophils % 4 %; Eosinophils # (M) 0.11 k/uL (0-0.7); Metamyelocytes # (M) 0.16 k/uL (0); Metamyelocytes % 3 %; Monocytes # (M) 0.43 k/uL (0-1.0); Myelocytes # (M) 0.11 k/uL (0); Myelocytes % 2 %; Neutrophils % (M) 59 %; Nucleated Red Blood Cells 0 /100 WBC (0-0); Total Cells Counted 200
[2020-07-23 11:09] LABS: Large Platelets Present
[2020-07-23 12:21] LABS: ALT 21 U/L (8-44); AST 52 U/L (13-35); African American GFR (CKD) 138.8 (60.0-200.0); Alkaline Phosphatase 162 U/L (41-126); Blood Urea Nitrogen <5.0 mg/dL (9.0-27.0); Carbon Dioxide 23.3 mmol/L (21.6-31.8); Chloride 108 mmol/L (96-109); Globulin 1.8 g/dL (1.6-3.3); Glucose 83 mg/dL (70-110); Non-African American GFR(CKD) 119.8 (60.0-200.0); Potassium 3.5 mmol/L (3.5-5.5); Sodium 139 mmol/L (135-145); Total Bilirubin 0.4 mg/dL (0.3-1.2); Total Protein 4.5 g/dL (6.2-8.2)
--- NOTE | 2020-07-23 15:53 | PN ---
PROGRESS NOTE PULMONARY/CRITICAL CARE PROGRESS NOTE: DATE OF SERVICE: 07/23/2020 This is a 35-year-old female whom we saw in the emergency room yesterday. She is a 7, para 6 female who is 31 weeks' with twins. She came into the emergency room complaining of just not feeling well over the weekend. She apparently had fever, chills. She had a bit of chest congestion. She was also nauseated with muscle aches and joint aches. She denied any shortness of breath. Minimal cough. Chest x-ray apparently showed a patchy right lower lobe infiltrate. She was admitted to the hospital with a diagnosis of community-acquired pneumonia. Her COVID testing was negative. She is feeling only minimally better today. PHYSICAL EXAMINATION: VITAL SIGNS: Current vital signs are reviewed. Temperature is 98.5, heart rate 104, respiratory rate 20, blood pressure 99/62, mean 74, room-air saturation 96%. GENERAL APPEARANCE: Appears in no acute distress. HEENT: Examination is grossly unremarkable. NECK: Supple. Full range of motion. No adenopathy. Neck veins are flat. CARDIOVASCULAR: Examination reveals regular rhythm and rate. Heart rate 95. S1, S2 normal. There was no S3, S4 or murmur. LUNGS: Lungs reveal a few scattered rhonchi. No wheezes or crackles. ABDOMEN: Rounded secondary to a gravid uterus. EXTREMITIES: Intact. Minimal edema. SKIN: Without rash. NEUROLOGIC: Neurologic examination is brief but nonfocal. LABS/IMAGING: Labs are reviewed. White count 5.4, hemoglobin 10, hematocrit 30, platelet count 79,000. Sodium 139, potassium 3.5, chloride 108, carbon dioxide 23.3. BUN and creatinine were less than 5 and 0.6. Calcium 8, AST 52, ALT 21, alkaline phosphatase 162, LDH 326, albumin 2.7. Urine is negative. Serology including coronavirus testing was negative. Microbiology is negative. Chest x-ray was reviewed. MEDICATIONS: Medications include Zithromax and ceftriaxone. The patient is also on albuterol treatment. ASSESSMENT: 1. Community-acquired pneumonia, right lower lobe. 2. History of migraine cephalgia. 3. Scoliosis. 4. Intrauterine , 31 weeks, in a female who is . 5. Rule out HELLP syndrome. PLAN: I did mention to the CRITICAL CARE CNS doctor about my concern of the low platelets, liver function tests, and hemoglobin. The patient is clinically stable. Respiratory status is improved. Her breathing is improved. She remains on Rocephin and Zithromax. Will continue to treat. No additional recommendations are made. MMODL / IJN: [id number] /
--- NOTE | 2020-07-23 16:38 | P.PN ---
Progress Note - Text Progress Note Date: 07/23/20 Seen and evaluated this afternoon. I did also review her labs and vital signs. Overall she is stable. Her nausea has improved somewhat over last night. She does have intermittent headaches but otherwise relates that she does feel a little bit better. There was some concern due to her platelets below that she could have preeclampsia/[facility] but there is no clinical evidence for this. Her blood pressures of all been normal and she had negative protein in her urine. Her LDH was also normal and her knee and creatinine are also normal. More likely her low platelets is due to gestational thrombocytopenia which is more common with twins. Should her platelet count continued to fall consideration for hematology and peripheral smear should be made. If there is concern also we could add prednisone 20 mg daily for 3 weeks to try and help boost her platelet levels area On physical exam again vital signs are stable and she is afebrile at this time. On physical exam with regard to her , gravid uterus is noted. She has no peripheral or central edema and deep tendon reflexes are normal. Assessment intrauterine Brixey 30 weeks with twins. I did discuss her care with the maternal- medicine physician that she has seen during the and at this time above recommendations are all the way really have. She will be transferred to labor and delivery for routine monitoring as she declines on remote telemetry and she is not having any signs or symptoms of her tachycardia that she had earlier in the Plan as above
[2020-07-23] MEDS: ACETAMINOPHEN TAB 325 MG TAB PO PRN (19:08)
[2020-07-23] MEDS: AZITHROMYCIN 500 MG in SODIUM CHLORIDE 0.9% 250 ML IVPB SCH (21:33)
--- NOTE | 2020-07-23 23:22 | PN ---
PROGRESS NOTE A 35-year-old white female who was admitted for a 31 twins with community- acquired pneumonia on IV Rocephin and azithromycin. White count 5.4, hemoglobin is 10. VITAL SIGNS: Stable. CARDIOVASCULAR: S1, S2. LUNGS: Wheezes at the bases. HEMATOLOGY: Negative Homans. PSYCH: Fair mood and affect. ASSESSMENT: Community-acquired pneumonia. We are going to get her off the floor to go to OB floor as soon as possible to get her off the COVID floor as she is and is immunocompromise due to her being . She is lying on her side to avoid dizziness and low blood pressure. Continue with broad-spectrum antibiotics. Prognosis guarded. MMODL / IJN: [id number] /
[2020-07-24] MEDS: SODIUM CHLORIDE 0.9% 1,000 ML IV SCH ×2 (02:59→12:49)
[2020-07-24] MEDS: PRENATAL VIT-IRON-FOLIC ACID 1 EACH CAP PO SCH (08:14)
[2020-07-24] MEDS: ASPIRIN 81 MG PO SCH (08:22)
[2020-07-24] MEDS: FOLIC ACID 1 MG TAB PO SCH (08:22)
[2020-07-24 09:29] LABS: HCT 32.8 % (34.0-46.0); HGB 10.5 gm/dL (11.4-16.0); Hypochromasia Slight; MCH 31.5 pg (25.0-35.0); MCHC 32.2 g/dL (31.0-37.0); Mean Platelet Volume 11.9; Poikilocytosis Slight; RBC 3.34 m/uL (3.80-5.40); RDW 13.9 % (11.5-15.5); WBC 6.6 k/uL (3.8-10.6)
[2020-07-24] MEDS: ALBUTEROL NEBULIZED 2.5 MG/3 ML INHALATION SCH ×3 (09:47→17:26)
[2020-07-24 09:56] LABS: Platelet Count 59 k/uL (150-450)
[2020-07-24 10:08] LABS: ALT 20 U/L (4-34); AST 71 U/L (14-36); African American GFR (CKD) >90 (>60 ml/min/1.73 sqM); Albumin 2.2 g/dL (3.5-5.0); Albumin/Globulin Ratio 0.9; Alkaline Phosphatase 164 U/L (38-126); Anion Gap 3 mmol/L; Blood Urea Nitrogen 3 mg/dL (7-17); Calcium 7.6 mg/dL (8.4-10.2); Carbon Dioxide 23 mmol/L (22-30); Chloride 112 mmol/L (98-107); Globulin 2.5 g/dL; Glucose 77 mg/dL (74-99); Non-African American GFR(CKD) >90 (>60 ml/min/1.73 sqM); Sodium 138 mmol/L (137-145); Total Bilirubin 0.6 mg/dL (0.2-1.3); Total Protein 4.7 g/dL (6.3-8.2)
[2020-07-24] MEDS: METOPROLOL TARTRATE 12.5 MG TAB PO SCH (11:31)
[2020-07-24 11:36] LABS: Band Neutrophils % 1 %; Large Platelets Present; Lymphocytes # (M) 1.39 k/uL (1.0-4.8); Monocytes # (M) 0.07 k/uL (0-1.0); Neutrophils % (M) 77 %; Nucleated Red Blood Cells 0 /100 WBC (0-0); Total Cells Counted 100
[2020-07-24 12:43] VITALS: RESP 15
--- NOTE | 2020-07-24 15:08 | P.PN ---
Subjective Progress Note Date: 07/24/20 Principal diagnosis: The patient is seen today 07/24/2020 in follow-up on the OB floor. She was admitted on 07/21/2020 with complaints of generalized weakness and fatigue along with some fever and chills. She is feeling quite nauseated. She's had some muscle aches joint aches and a headache. She is 7, para 6, currently 31 weeks with twins. She had been seen and evaluated by Dr. Londono and felt to have a community-acquired pneumonia of the right lower lobe. Presently she is breathing a bit easier today compared to yesterday. Less cough and congestion. She is maintaining good O2 saturations in the mid to upper 90s on room air. She's been afebrile. Hemodynamically stable. White count 6.6. Hemoglobin 10.5. Platelet count 59,000. Sodium 138. Potassium 4.0. Creatinine 0.59. AST 71, ALT 20. Spencer virus screen was negative. Influenza screen negative. Group A rapid strep negative. She is currently on ceftriaxone and azithromycin. Objective - Vital Signs Vital signs: Vital Signs Temp 97.5 F L 07/24/20 12:00 Pulse 77 07/24/20 12:00 Resp 15 07/24/20 12:00 BP 104/74 07/24/20 12:00 Pulse Ox 98 07/24/20 12:00 Intake & Output 07/23/20 07/24/20 07/24/20 18:59 06:59 18:59 Intake Total 1880 1250 Output Total 500 Balance 1880 750 Intake: IV 800 Sodium Chloride 0.9% 1, 800 000 ml @ 100 mls/hr IV . Q10H FARZANA Rx#:[id number] Intake, IV Titration 1250 Amount Azithromycin 500 mg In 250 Sodium Chloride 0.9% 250 ml @ 250 mls/hr IVPB HS FARZANA Rx#:[id number] Sodium Chloride 0.9% 1, 1000 000 ml @ 100 mls/hr IV . Q10H FARZANA Rx#:[id number] Oral 1080 Output: Urine 500 Other: # Voids 3 0 - Exam GENERAL EXAM: Alert, very pleasant 35-year-old female patient, on room air, comfortable in no apparent distress. HEAD: Normocephalic. EYES: Normal reaction of pupils, equal size. NOSE: Clear with pink turbinates. THROAT: No erythema or exudates. NECK: No masses, no JVD. CHEST: No chest wall deformity. LUNGS: Equal air entry with crackles in the right base. CVS: S1 and S2 normal with no audible murmur, regular rhythm. ABDOMEN: Rounded secondary to gravid uterus Normal bowel sounds, no guarding or rigidity. SPINE: No scoliosis or deformity SKIN: No rashes CENTRAL NERVOUS SYSTEM: No focal deficits, tone is normal in all 4 extremities. EXTREMITIES: There is no peripheral edema. No clubbing, no cyanosis. Peripheral pulses are intact. - Labs CBC & Chem 7: 07/24/20 08:49 07/24/20 08:49 Labs: Abnormal Lab Results - Last 24 Hours (Table) 07/24/20 07/24/20 Range/Units 08:49 08:49 RBC 3.34 L (3.80-5.40) m/uL Hgb 10.5 L (11.4-16.0) gm/dL Hct 32.8 L (34.0-46.0) % Plt Count 59 L (150-450) k/uL Chloride 112 H (98-107) mmol/L BUN 3 L (7-17) mg/dL Calcium 7.6 L (8.4-10.2) mg/dL AST 71 H (14-36) U/L Alkaline Phosphatase 164 H (38-126) U/L Total Protein 4.7 L (6.3-8.2) g/dL Albumin 2.2 L (3.5-5.0) g/dL Microbiology - Last 24 Hours (Table) 07/21/20 21:48 Group A Strep Throat Culture - Final Throat Assessment and Plan Assessment: 1 Acute community-acquired pneumonia involving the right lower lobe 2 Thrombocytopenia of unclear etiology, rule out HELLP syndrome 3 History of migraine cephalgia 4 Dextroscoliosis Plan: The patient was seen and evaluated by Dr. Satya Gibbs from the pulmonary standpoint Continue the current treatment plan Platelets 50,000 Hematology has been consulted Will continue to follow I, the cosigning physician, performed a history & physical examination of the patient. Lungs sounds with crackles in the right base. Maintaining good O2 saturations in the 90s on room air. I discussed the assessment and plan of care with my nurse practitioner, Nita Cade. I attest to the above note as dictated by her.
[2020-07-24 15:20] LABS: INR 1.1 (<1.2); LDH 1499 U/L (313-618); Partial Thromboplastin Time 30.3 sec (22.0-30.0); Prothrombin Time 10.9 sec (9.0-12.0)
[2020-07-24] MEDS ORDERED: MAGNESIUM SULFATE-WATER PMX 4 GM in WATER FOR INJECTION 1 100ML.BAG IVPB ONE (16:37)
[2020-07-24] MEDS ORDERED: MAGNESIUM SULFATE-WATER PMX 20 GM in WATER FOR INJECTION 1 500ML.BAG IV SCH (16:45)
[2020-07-24] MEDS ORDERED: BETAMET ACET-BETAMETH SOD PHOS 6 MG/ML MDV IM SCH (16:45)
[2020-07-24 17:00] VITALS: BP 106/66; TEMP 97.7
[2020-07-24] MEDS ORDERED: LACTATED RINGERS 1,000 ML IV SCH (17:00)
--- NOTE | 2020-07-24 17:37 | P.PN ---
Progress Note - Text Progress Note Date: 07/24/20 Is called earlier today by the nurse who told me that her platelet count was down to 59,000 today. I recommended consultation with hematology. Hematology ordered some labs but has not seen her yet. When I reviewed the labs, it appears that her LDH went from [id number] in 2 days and her fibrinogen is low at 100. Her PTT is also elevated at 30.5 with an INR of 1.1. I called and spoke to Dr. Monroe Willard at [facility] in [place] who has been her maternal medicine specialist and has seen her in the office during this . 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 He does recommend that she be transferred to their facility. He has recommended she get a dose of betamethasone for lung maturity and be started on magnesium sulfate seizure prophylaxis. I have explained all of this to the patient and she understands the reason for transfer. She is agreeable to this plan. She will be transferred via ambulance. She currently complains of some waves of nausea but better than when she came in. She is holding down her food. She is feeling good movement with babies and denies feeling any regular contractions.
[2020-07-24 17:40] VITALS: PULSE 80
[2020-07-25 02:21] LABS: Folate, Serum >24.0 ng/mL
== END 2020-07-24 19:00 | disposition short-term general hospital (02) | DRG 831 ==
LOC: EC 21:02 → 4SSUR 23:45 → 4FBP 07-23 23:15
PROVIDERS: ADMIT Family Medicine; ATTEND Family Medicine
DX: O14.23 HELLP syndrome (HELLP), third trimester (principal); J18.9 Pneumonia, unspecified organism; O99.113 Other diseases of the blood and blood-forming organs and certain disorders involving the immune mechanism complicating pregnancy, third trimester; J44.1 Chronic obstructive pulmonary disease with (acute) exacerbation; J44.0 Chronic obstructive pulmonary disease with (acute) lower respiratory infection; E87.1 Hypo-osmolality and hyponatremia; O30.003 Twin pregnancy, unspecified number of placenta and unspecified number of amniotic sacs, third trimester; E88.89 Other specified metabolic disorders; O99.283 Endocrine, nutritional and metabolic diseases complicating pregnancy, third trimester; M41.9 Scoliosis, unspecified; O99.513 Diseases of the respiratory system complicating pregnancy, third trimester; D69.59 Other secondary thrombocytopenia; Z20.828 Contact with and (suspected) exposure to other viral communicable diseases; Z3A.31 31 weeks gestation of pregnancy; Z79.82 Long term (current) use of aspirin; Z82.49 Family history of ischemic heart disease and other diseases of the circulatory system; Z87.891 Personal history of nicotine dependence; Z90.49 Acquired absence of other specified parts of digestive tract; E83.51 Hypocalcemia
CPT/HCPCS: 36415; 71045; 80053; 81003; 82607; 82746; 83010; 83615; 85025; 85384; 85610; 85730; 87081; 87430; 87502; 87635; 94640; 96361; 96365; 96375; 99285

== ENCOUNTER → 2020-10-23 | Day surgery (SDC) | payer OTHER ==
[2020-10-21 10:50] VITALS: BMI 29.2
--- NOTE | 2020-10-21 18:34 | P.HPOB ---
History of Present Illness H&P Date: 10/21/20 Chief Complaint: Family planning Priscilla is a 35-year-old female who has completed her family planning and desires permanent sterilization. She is scheduled for a laparoscopic bilateral partial salpingectomy. She understands risks of this procedure including bleeding and infection, damage to bladder or bowel, vascular injuries or nerve injuries she also understands that normally we do not do a occlusion procedure but she is adamant that she would like her fallopian tubes removed. She she is also aware that there'll be more incisions made due to this removal. Risks did include but were not limited to bleeding and infection, damage to bladder or bowel, vascular injuries, nerve injuries, but possible need for other surgery. Minimal risk of failure with removal of fallopian tubes. She is however acutely aware that this procedure is permanent and may not be reversed. Past Medical History Past Medical History: No Reported History Additional Past Medical History / Comment(s): scoliosis, migraines, vasovagal episodes during HELP SYNDROME DURING AND ANEMIA History of Any Multi-Drug Resistant Organisms: None Reported Past Surgical History: Appendectomy, Section, Orthopedic Surgery Additional Past Surgical History / Comment(s): bilateral feet Past Anesthesia/Blood Transfusion Reactions: No Reported Reaction Smoking Status: Former smoker - Past Family History Mother Family Medical History: Coronary Artery Disease (CAD) Medications and Allergies Home Medications Medication Instructions Recorded Confirmed Type Aspirin [Children's Aspirin] 81 mg PO DAILY 05/13/20 07/21/20 History Folic Acid 1 tab PO DAILY 05/13/20 07/21/20 History Pnv No.95/Ferrous Fum/Folic AC 1 tab PO DAILY 05/13/20 07/21/20 History [ Multivitamin Tablet] Metoprolol Tartrate [Lopressor] 12.5 mg PO BID 07/21/20 07/21/20 History Allergies Allergy/AdvReac Type Severity Reaction Status Date / Time Pertussis Vaccines Allergy Unknown Verified 10/21/20 10:35 Childhood Exam Osteopathic Statement: *. No significant issues noted on an osteopathic structural exam other than those noted in the History and Physical/Consult. Intake and Output 10/21/20 10/21/20 10/21/20 06:59 14:59 22:59 Other: Weight 77.111 kg - OBG Physical Exam Breast: both: normal (no masses) Abdomen: bowel sounds normal, no diffuse tenderness, no bruit present, no guarding noted, no hepatomegaly, no splenomegaly, no mass Vulva: both: normal Vagina: normal moisture, no discharge Cervix: no lesion, no discharge Uterus: normal size, normal contour Adnexa: both: normal Anus/Rectum: normal perianal skin, no rectal mass, no hemorrhoids, heme negative
[~2020-10-23] MED LIST: BUPIVACAINE (PF) 0.25% 30 ML VIAL SQ ONE; DEXAMETHASONE SOD PHOSPHATE 4 MG/ML 1 ML VIAL IV ONE; GLYCOPYRROLATE 0.2 MG/ML 2 ML VIAL ONE; HYDROmorphone 0.5 MG/0.5 ML SYRINGE IVP PRN; IBUPROFEN 200 MG TAB PO ONE; KETOROLAC 15 MG/ML 1 ML VIAL ONE; LACTATED RINGERS 1,000 ML IV ONE; LACTATED RINGERS 1,000 ML IV SCH; LIDOCAINE 1% INJ 10MG/ML (20 ML MDV) ONE; MIDAZOLAM 2 MG/2 ML VIAL ONE; NEOSTIGMINE 1 MG/ML 10 ML VIAL ONE; ONDANSETRON 4 MG/2 ML VIAL IVP ONE; PROPOFOL 10 MG/ML 20 ML VIAL IV ONE; Pre Op ABX Message 1 EACH MISC MISCELLANE ONE; ROCURONIUM 10 MG/ML (10 ML VIAL) IV ONE; SUCCINYLCHOLINE CHLORIDE 100 MG/5 ML SYR IV ONE; fentaNYL (PF) 50 MCG/ML 2 ML AMP ONE
--- NOTE | 2020-10-23 10:17 | P.OP ---
Date of Procedure: 10/23/20 Preoperative Diagnosis: Family planning Postoperative Diagnosis: same Procedure(s) Performed: Bilateral partial salpingectomy Anesthesia: LOY Surgeon: Uri Collazo Estimated Blood Loss (ml): 5 IV fluids (ml): 200 Urine output (ml): 10 Pathology: other (Fallopian tubes) Condition: stable Disposition: same day Operative Findings: Normal pelvic anatomy Description of Procedure: Patient was taken the operating suite where general anesthetic was found be adequate. She was prepped and draped in normal sterile fashion placed in dorsal lithotomy position. Initially a speculum was inserted in the vagina and anterior lip cervix identified and grasped with single-tooth tenaculum. Uterus was then sounded to 10 cm and a nesha later was inserted without difficulty. Wells were then changed following red rubber catheter used for drainage of the bladder. Once this was completed attention was turned to abdominal portion procedure where 2 mL of quarter some Marcaine was injected periumbilically. Through this injected anesthetic a 5 mm skin incision was made and through this incision, under direct visualization with an optical trocar and sleeve the camera was inserted. Once peritoneal placement was assured gas was allowed to fully slick abdomen and patient was placed in steep Trendelenburg position. A second port and sleeve was then inserted 3 cm above the pubic symphysis in the midline. This was inserted through an eye millimeters skin incision. This was also done under direct visualization. Third port and sleeve were then inserted in the right lower quadrant again using transillumination and direct visualization through 5 mm incision. Observations pelvis were then noted and the uterus was elevated. First the right fallopian tube was grasped and elevated moving to the lateral border under the fimbria a LigaSure was used to cauterize and transect the mesosalpinx tissue moving medially along the mesosalpinx tissues clamped cauterized and cut and then once the majority the tube was free the fallopian tube itself was grasped cauterized and cut and then removed from the operative field. In a similar fashion than the fallopian tube was also excised. At the conclusion of the procedure, hemostasis is noted throughout the pedicles and nasal salpinx area. Incidents were then removed and gas was allowed to expel from the abdomen. 5 deep breaths were provided during this process. Once completed ports were removed 4-0 Vicryl was used to close incision subcuticularly with another 10 mL of Marcaine injected around the incisions. Instruments from was then removed from the vagina. Sponge, lap, needle counts were all correct 2. Patient was taken to the recovery room in stable and satisfactory condition. Plan - Discharge Summary Discharge Rx Participant: Yes New Discharge Prescriptions: No Action Pnv No.95/Ferrous Fum/Folic AC [ Multivitamin Tablet] 1 tab PO DAILY Discharge Medication List Pnv No.95/Ferrous Fum/Folic AC [ Multivitamin Tablet] 1 tab PO DAILY 05/13/20 [History]
[2020-10-23 10:26] VITALS: TEMP 96.8
[2020-10-23 11:46] VITALS: PULSE 68
[2020-10-23 11:53] VITALS: BP 102/69; RESP 16
== END | disposition home or self-care (01) ==
LOC: OR 08:31
PROVIDERS: ATTEND Obstetrics & Gynecology
DX: Z30.2 Encounter for sterilization (principal); M41.9 Scoliosis, unspecified; G43.909 Migraine, unspecified, not intractable, without status migrainosus; Z90.89 Acquired absence of other organs; Z98.891 History of uterine scar from previous surgery; Z98.890 Other specified postprocedural states; Z87.891 Personal history of nicotine dependence; Z79.82 Long term (current) use of aspirin; Z79.899 Other long term (current) drug therapy; Z88.7 Allergy status to serum and vaccine; Z82.49 Family history of ischemic heart disease and other diseases of the circulatory system
CPT/HCPCS: 81025; 88302; 58661; J2250; J1100; J2710; J2405; J2001; J3010; J1885; J0330; J2704

== ENCOUNTER → 2020-11-25 | Outpatient (CLI) | payer OTHER ==
--- NOTE | 2020-11-25 15:54 | US ---
EXAMINATION TYPE: US gallbladder DATE OF EXAM: 11/25/2020 COMPARISON: NONE CLINICAL HISTORY: R10.11 ABD PAIN RUQ. RUQ pain, stomach "issues" EXAM MEASUREMENTS Liver Length: 18.0 Gallbladder Wall: 0.2cm CBD: 0.2 cm Right Kidney: 10.0 x 4.1 x 4.0 cm Pancreas: wnl Liver: wnl Gallbladder: wnl Evidence for sonographic Springer's sign: no CBD: wnl Right Kidney: wnl IMPRESSION: 1. Hepatomegaly
== END ==
LOC: RADUSWWP 06:55
PROVIDERS: ATTEND Family Medicine
DX: R16.0 Hepatomegaly, not elsewhere classified (principal)
CPT/HCPCS: 76705

== ENCOUNTER → 2021-03-09 | Outpatient (CLI) | payer OTHER ==
--- NOTE | 2021-03-09 14:53 | XR ---
EXAMINATION TYPE: XR chest 2V DATE OF EXAM: 03/09/2021 COMPARISON: 07/21/2020 HISTORY: Diagnosed with autoimmune disease TECHNIQUE: Frontal and lateral views of the chest are obtained. FINDINGS: Heart size is within normal limits. Dextroscoliosis of the lower thoracic spine. No focal consolidation, pneumothorax or pleural effusion. IMPRESSION: 1. No acute pulmonary disease. 2. Dextroscoliosis of the lower thoracic spine.
--- NOTE | 2021-03-09 17:23 | XR ---
EXAMINATION TYPE: XR sacroiliac joint comp BILAT DATE OF EXAM: 03/09/2021 COMPARISON: NONE HISTORY: 35-year-old female with autoimmune disease FINDINGS: The sacroiliac joints are intact. There is bilateral asymmetric sclerosis of the sacroiliac joints at the iliac portions. These findings are suggestive of sacroiliitis, which can be seen with autoimmune diseases such as psoriatic arthritis, Katy's, or gout amongst others. Multiple presumed calcified pelvic phleboliths are seen. IMPRESSION: 1. Bilateral asymmetric sclerosis of the sacroiliac joints at the iliac portions. These findings are suggestive of sacroiliitis which can be seen with autoimmune diseases, such as psoriatic arthritis, R eiter's, or gout, amongst others. Clinical correlation is recommended.
[2021-03-09 18:47] LABS: Basophils # (A) 0.02 X 10*3/uL (0.00-0.10); Basophils % (A) 0.5 %; Eosinophils # (A) 0.14 X 10*3/uL (0.04-0.35); Eosinophils % (A) 3.2 %; HCT 39.4 % (37.2-46.3); HGB 12.4 g/dL (12.0-15.0); Lymphocytes # (A) 1.59 X 10*3/uL (0.90-5.00); Lymphocytes % (A) 36.7 %; MCH 28.6 pg (27.0-32.0); MCHC 31.5 g/dL (32.0-37.0); Mean Platelet Volume 11.2 fL (9.5-12.2); Monocytes # (A) 0.23 X 10*3/uL (0.20-1.00); Monocytes % (A) 5.3 %; Neutrophils # (A) 2.34 X 10*3/uL (1.80-7.70); Neutrophils % (A) 54.1 %; Platelet Count 241 X 10*3/uL (140-440); RBC 4.33 X 10*6/uL (4.10-5.20); RDW 13.7 % (11.5-14.5); WBC 4.33 X 10*3/uL (4.50-10.00)
[2021-03-09 21:09] LABS: Rheumatoid Factor, Qnt 8 IU/mL (0-15)
[2021-03-10 12:26] LABS: Angiotensin-1 Converting Enz. 26 U/L (8-52)
[2021-03-10 14:35] LABS: HLA B27 NEGATIVE
== END | disposition home or self-care (01) ==
LOC: LABWHC1 13:20
PROVIDERS: ATTEND Ophthalmology
DX: M41.84 Other forms of scoliosis, thoracic region (principal); H46.03 Optic papillitis, bilateral; M53.3 Sacrococcygeal disorders, not elsewhere classified; H30.10 Unspecified disseminated chorioretinal inflammation
CPT/HCPCS: 36415; 71046; 72202; 82164; 83090; 85025; 85549; 86038; 86431; 86618; 86780; 86812

== ENCOUNTER 2021-08-18 08:57 | Day surgery (SDC) | payer OTHER ==
[2021-08-14 14:03] VITALS: BMI 30.9
[~2021-08-18 08:57] MED LIST changes: -BUPIVACAINE (PF) 0.25% 30 ML VIAL SQ ONE; -DEXAMETHASONE SOD PHOSPHATE 4 MG/ML 1 ML VIAL IV ONE; -GLYCOPYRROLATE 0.2 MG/ML 2 ML VIAL ONE; -HYDROmorphone 0.5 MG/0.5 ML SYRINGE IVP PRN; -IBUPROFEN 200 MG TAB PO ONE; -KETOROLAC 15 MG/ML 1 ML VIAL ONE; -LACTATED RINGERS 1,000 ML IV ONE; -LACTATED RINGERS 1,000 ML IV SCH; -LIDOCAINE 1% INJ 10MG/ML (20 ML MDV) ONE; -MIDAZOLAM 2 MG/2 ML VIAL ONE; -NEOSTIGMINE 1 MG/ML 10 ML VIAL ONE; -ONDANSETRON 4 MG/2 ML VIAL IVP ONE; -PROPOFOL 10 MG/ML 20 ML VIAL IV ONE; -Pre Op ABX Message 1 EACH MISC MISCELLANE ONE; -ROCURONIUM 10 MG/ML (10 ML VIAL) IV ONE; +SODIUM CHLORIDE 0.9% 1,000 ML IV SCH; -SUCCINYLCHOLINE CHLORIDE 100 MG/5 ML SYR IV ONE; -fentaNYL (PF) 50 MCG/ML 2 ML AMP ONE
[2021-08-18] MEDS ORDERED: SODIUM CHLORIDE 0.9% 500 ML IV ONE (09:11)
[2021-08-18 09:18] VITALS: RESP 16; TEMP 98.9
--- NOTE | 2021-08-18 12:21 | P.EPPROC ---
- EP Procedure Note Electrophysiology Procedure Note: Diagnosis Recurrent presyncope and dizziness Twelve-lead EKG shows sinus rhythm, normal CO narrow QRS normal ST segments Normal QT interval No delta waves, no epsilon waves Tilt table test for protocol Blood pressure 120/82 mmHg pulse rate in the 60s She was tilted upright at an angle of 70 per protocol She was dizzy only with change in position or during assuming upright position and she was laid supine Her heart rate and blood pressure remained stable for the procedure She had varying complaints of dizziness tingling in her feet and legs going numb Impression Normal heart rate and blood pressure response to upright tilting No evidence for neurocardiogenic syncope Normal twelve-lead EKG
[2021-08-18 14:20] VITALS: BP 117/82; PULSE 71
== END 2021-08-18 11:43 | disposition home or self-care (01) ==
LOC: CATHEP 08:57
PROVIDERS: ATTEND Internal Medicine Clinical Cardiac Electrophysiology
DX: R55 Syncope and collapse (principal)
CPT/HCPCS: 81025; 87635; 93660

== ENCOUNTER → 2022-03-30 | Outpatient (CLI) | payer OTHER ==
[2022-03-30 14:13] LABS: Basophils # (A) 0.02 X 10*3/uL (0.00-0.10); Basophils % (A) 0.5 %; Eosinophils # (A) 0.16 X 10*3/uL (0.04-0.35); Eosinophils % (A) 4.2 %; HCT 40.1 % (37.2-46.3); HGB 12.7 g/dL (12.0-15.0); Immature Grans, Automated 0 %; Lymphocytes # (A) 1.32 X 10*3/uL (0.90-5.00); Lymphocytes % (A) 34.4 %; MCH 28.5 pg (27.0-32.0); MCHC 31.7 g/dL (32.0-37.0); MCV 90.1 fL (80.0-97.0); Mean Platelet Volume 11.2 fL (9.5-12.2); Monocytes # (A) 0.24 X 10*3/uL (0.20-1.00); Monocytes % (A) 6.3 %; NRBC Per 100 WBC 0 /100 WBCS (0.0-0.0); Neutrophils % (A) 54.6 %; Platelet Count 220 X 10*3/uL (140-440); RBC 4.45 X 10*6/uL (4.10-5.20); RDW 13.6 % (11.5-14.5); WBC 3.84 X 10*3/uL (4.50-10.00)
[2022-03-30 14:39] LABS: African American GFR (CKD) 110.7 (60.0-200.0); Albumin 4.6 g/dL (3.8-4.9); Albumin/Globulin Ratio 1.59 (1.60-3.17); Anion Gap 14.1 mmol/L (10.00-18.00); Blood Urea Nitrogen 13.6 mg/dL (9.0-27.0); Calcium 9.5 mg/dL (8.7-10.3); Carbon Dioxide 21.9 mmol/L (20.0-27.5); Globulin 2.9 g/dL (1.6-3.3); Non-African American GFR(CKD) 95.5 (60.0-200.0); Potassium 3.6 mmol/L (3.5-5.5); T4, Free (Free Thyroxine) 0.87 ng/dL (0.800-1.800); Total Bilirubin 0.8 mg/dL (0.30-1.20); Total Protein 7.5 g/dL (6.2-8.2)
== END | disposition home or self-care (01) ==
LOC: LABWHC1 08:50
PROVIDERS: ATTEND Nurse Practitioner Acute Care
DX: E55.9 Vitamin D deficiency, unspecified (principal); E53.9 Vitamin B deficiency, unspecified; R20.8 Other disturbances of skin sensation; R47.02 Dysphasia; R42 Dizziness and giddiness; R51.9 Headache, unspecified
CPT/HCPCS: 36415; 80053; 82306; 82607; 84207; 84439; 84443; 84481; 85025